=== PATIENT | female | born 1960 | race Two or more races ===

== ENCOUNTER 2023-10-05 21:04 | Emergency (ER) | payer MEDICAID, OTHER ==
[~2023-10-05] VITALS: Ht 165.1 cm; Wt 80.0 kg
[2023-10-05 22:03] LABS: Urine Bacteria NONE SEEN /hpf (None Seen); Urine Blood Negative /uL (Negative); Urine Clarity Clear (Clear); Urine Color Colorless (Yellow); Urine Protein, UAD Negative (Negative); Urine Specific Gravity 1.007 (1.001-1.035); Urine Urobilinogen Normal (Negative); Urine WBC 2 /hpf (0 - 5); Urine pH 7.5 (5.0-8.0)
[2023-10-06 03:15] VITALS: BP 120/84; PULSE 74; RESP 18; TEMP 97.8; O2SAT 98
[2023-10-06] MEDS ORDERED: PHEN-1045 PO (03:28)
== END 2023-10-06 04:04 | disposition home or self-care (01) ==
LOC: ER 21:04 → EDBD 21:04 → ER 10-06 04:04
DX: R30.0 Dysuria (principal); Z79.899 Other long term (current) drug therapy
CPT/HCPCS: 81001; 87086

== ENCOUNTER 2024-05-09 12:48 | Emergency (ER) | payer MEDICAID ==
[~2024-05-09] VITALS: Ht 165.1 cm; Wt 72.8 kg
[~2024-05-09 12:48] MED LIST: PHEN-1045 PO
[2024-05-09] MEDS: diphenhdrAMINE HCL 50 MG/1 ML VL ONE (13:26)
[2024-05-09] MEDS: HALOPERIDOL LACTATE 5 MG/ML INJ VIAL ONE (13:26)
[2024-05-09] MEDS: diphenhdrAMINE HCL 50 MG/1 ML VL IM ONE (13:27)
[2024-05-09] MEDS: HALOPERIDOL LACTATE 5 MG/ML INJ VIAL IM ONE ×2 (13:27→19:44)
[2024-05-09] MEDS: SODIUM CHLORIDE 0.9% 500 ML IVB ONE (16:15)
[2024-05-09] MEDS: SODIUM CHLORIDE 0.9% 1,000 ML IV ONE (16:15)
[2024-05-09 17:18] LABS: Basophils # (auto) 0.1 10 ^3/uL (0-0.2); Basophils % (auto) 0.5 % (0.0-2.0); Eosinophils # (auto) 0 10 ^3/uL (0-0.8); Eosinophils % (auto) 0.4 % (0.0-7.0); Hematocrit 37.1 % (36.0-46.0); Hemoglobin 12.7 g/dL (12.2-16.2); Lymphocytes # (auto) 2.3 10 ^3/uL (0.4-5.4); Lymphocytes % (auto) 20.4 % (10.0-50.0); Mean Corpuscular Hemoglobin 30.9 pg (28.0-32.0); Mean Corpuscular Hgb Conc. 34.3 g/dL (32.0-36.0); Mean Corpuscular Volume 90.1 fL (80.0-100.0); Monocytes # (auto) 0.8 10 ^3/uL (0-1.3); Monocytes % (auto) 7.3 % (0.0-12.0); Neutrophils # (auto) 7.9 10 ^3/uL (1.6-8.6); Neutrophils % (auto) 71.4 % (37.0-80.0); Platelet Count (auto) 323 10^3/uL (140-450); Red Blood Cells 4.12 10^6/uL (4.0-5.20); Red Cell Distribution Width 12.3 % (11.8-14.3); White Blood Cell 11.1 10^3/uL (4.4-10.8)
[2024-05-09 17:32] LABS: Alanine Aminotransferase 40 U/L (7-40); Albumin 4.3 g/dL (3.2-4.8); Alkaline Phosphatase 75 U/L (46-116); Anion Gap 7 (5-15); Aspartate Aminotransferase 50 U/L (13-40); BUN/Creatinine Ratio 23.8 (10.0-20.0); Blood Urea Nitrogen 15 mg/dL (9-23); Calcium 10.3 mg/dL (8.7-10.4); Carbon Dioxide 26 mmol/L (20-31); Chloride 110 mmol/L (98-107); Glucose 83 mg/dL (74-106); Magnesium 2.2 mg/dL (1.6-2.6); Potassium 3.7 mmol/L (3.5-5.1); Sodium 143 mmol/L (136-145)
[2024-05-09 17:33] LABS: Bilirubin, Total 0.9 mg/dL (0.2-1.0); Total Protein 6.8 g/dL (5.7-8.2)
[2024-05-09 19:14] LABS: Urine Bacteria FEW /hpf (None Seen); Urine Blood Negative /uL (Negative); Urine Clarity Clear (Clear); Urine Color Colorless (Yellow); Urine Protein, UAD Negative (Negative); Urine Specific Gravity 1.002 (1.001-1.035); Urine Urobilinogen Normal (Negative); Urine WBC 2 /hpf (0 - 5); Urine pH 6.5 (5.0-9.0)
[2024-05-09 19:46] LABS: Amphetamine Screen, Urine Neg (NEGATIVE); Barbiturate Scree,Urine Neg (NEGATIVE); Benzodiazephine Screen, Urine Neg (NEGATIVE); Cannabinoid Screen, Urine Pos (NEGATIVE); Cocaine Screen, Urine Neg (NEGATIVE); Opiate Scree,Urine Neg (NEGATIVE); Phencyclidine Screen, Urine Neg (NEGATIVE)
[2024-05-09 20:30] VITALS: PULSE 92; RESP 18; O2SAT 96
[2024-05-10] MEDS: IBUPROFEN 800 MG TAB PO ONE (04:17)
[2024-05-10] MEDS: OLANZapine 5 MG TAB PO ONE (04:17)
[2024-05-10 08:00] VITALS: BP 94/48; PULSE 53; RESP 12; TEMP 97.8; O2SAT 97
== END 2024-05-10 11:23 | disposition left against medical advice (07) ==
LOC: EDBD 12:48 → ER 12:48
DX: S00.03XA Contusion of scalp, initial encounter (principal); F29 Unspecified psychosis not due to a substance or known physiological condition; F41.9 Anxiety disorder, unspecified; Z79.899 Other long term (current) drug therapy; X58.XXXA Exposure to other specified factors, initial encounter; Y93.89 Activity, other specified; Y92.89 Other specified places as the place of occurrence of the external cause; Y99.8 Other external cause status
CPT/HCPCS: 36415; 70450; 71046; 80053; 80307; 81001; 83735; 84484; 85025; 93005; 96372; 99285; J1200; J1630

== ENCOUNTER 2024-05-12 14:43 | Inpatient (IN) | payer MEDICAID ==
[~2024-05-12] VITALS: Ht 154.9 cm; Wt 69.8 kg
[2024-05-12] MEDS: SODIUM CHLORIDE 0.9% 1,000 ML IV ONE ×3 (15:00→21:15)
--- NOTE | 2024-05-12 15:08 | ED.PDOC ---
History of Present Illness HPI Comments 63F presents to the ER w/ no prior Hx associated to the c/c of psych. EMS report a call from one of the pt's neighbors stating that the pt was laying on the ground. EMS on scene state tat the pt was laying on the ground with tar on her leg and was trying to paint with the tar. The pt was getting very aggressive en rout by kicking and spitting so EMS had to strap the pt down. Pt lives with son and that she escaped her house. Pt states "I fell off the roof this morning trying to fix it." PMHx of Arthritis, Gout, High Lipids and UTI. Denies chills, fever, N/V/D, SOB, CP or other associated symptoms, modifiers, or recent injuries at this time. Time Seen by MD: 14:45 Primary Care Provider: SAUL Breaux Notes: Nurses Notes, Casting Wheel Operator Notes, Medications, Allergies Allergies: Coded Allergies: Penicillins (Verified Allergy, 04/18/10) Home Meds Active Scripts Phenazopyridine HCl (Phenazopyridine Hydrochlo) 200 Mg Tab, 200 MG PO TID, #6 TAB Prov:DEMETRIUS SONG 06/24/22 Ciprofloxacin Hcl (Cipro) 500 Mg Tab, 1 TAB PO BID, #20 TAB Prov:DEMETRIUS SONG 06/24/22 Information Source: Patient, Emergency Med Personnel Mode of Arrival: EMS Severity: Moderate Timing: Minutes Duration: Since onset, Minutes Prehospital treatment: None Past Medical History PAST MEDICAL HISTORY: Arthritis, Gout, High Lipids, UTI'S Surgical History: Denies all surgeries 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 Hx Family History Family History: Reviewed,noncontributory to illness, Unknown Social History Smoker: Non-Smoker Alcohol: Denies ETOH Use Drugs: Denies Drug Use Lives In: Home Constitutional: denies: chills, diaphoresis, fatigue, fever, malaise, sweats, weakness, others EENTM: denies: blurred vision, double vision, ear bleeding, ear discharge, ear drainage, ear pain, ear ringing, eye pain, eye redness, hearing loss, mouth pain, mouth swelling, nasal discharge, nose bleeding, nose congestion, nose pain, photophobia, tearing, throat pain, throat swelling, voice changes, others Respiratory: denies: cough, hemoptysis, orthopnea, SOB at rest, shortness of breath, SOB with excertion, stridor, wheezing, others Cardiovascular: denies: chest pain, dizzy spells, diaphoresis, Dyspnea on exertion, edema, irregular heart beat, left arm pain, lightheadedness, palpitations, PND, syncope, others Gastrointestinal: denies: abdomen distended, abdominal pain, blood streaked bowels, constipated, diarrhea, dysphagia, difficulty swallowing, hematemesis, melena, nausea, poor appetite, poor fluid intake, rectal bleeding, rectal pain, vomiting, others Genitourinary: denies: abnormal vagina bleeding, burning, dyspareunia, dysuria, flank pain, frequency, hematuria, incontinence, pain, , vagina discharge, urgency, others Neurological: denies: dizziness, fainting, headache, left sided numbness, left sided weakness, numbness, paresthesia, pre-existing deficit, right sided numbness, right sided weakness, seizure, speech problems, tingling, tremors, weakness, others Musculoskeletal: denies: back pain, gout, joint pain, joint swelling, muscle pain, muscle stiffness, neck pain, others Integumetry: denies: bruises, change in color, change in hair/nails, dryness, laceration, lesions, lumps, rash, wounds, others Allergic/Immunocompromised: denies: Difficulty Healing, Frequent Infections, Hives, Itching, others Hematologic/Lymphatic: denies: anemia, blood clots, easy bleeding, easy bruising, swollen glands, others Endocrine: denies: excessive hunger, excessive sweating, excessive thirst, excessive urination, flushing, intolerance to cold, intolerance to heat, unexplained weight gain, unexplained weight loss, others Psychiatric: reports: others (psych); denies: anxiety, bipolar disorder, depression, hopeless, panic disorder, schizophrenia, sleepless, suicidal All Other Systems: Reviewed and Negative Physical Exam General Appearance: Moderate Distress, Normal HEENT: Normal ENT Inspection, Pharynx Normal, TMs Normal Neck: Full Range of Motion, Non-Tender, Normal, Normal Inspection Respiratory: Chest Non-Tender, Lungs Clear, No Accessory Muscle Use, No Respiratory Distress, Normal Breath Sounds Cardiovascular: No Edema, No JVD, No Murmur, No Gallop, Normal Peripheral Pulses, Regular Rate/Rhythm Breast Exam: Deferred Gastrointestinal: No Organomegaly, Non Tender, No Pulsatile Mass, Normal Bowel Sounds, Soft Genitalia: Deferred Pelvic: Deferred Rectal: Deferred Extremities: No calf tenderness, Normal capillary refill, Normal inspection, Normal range of motion, Non-tender, No pedal edema Musculoskeletal : Apperance: Normal Neurologic: Disoriented Cerebellar Function: NOT DONE Reflexes: Normal, NOT DONE Skin: Dry, Normal Color, Warm Peripheral Pulses: 3+ Radial (R), 3+ Radial (L) Lymphatic: No Adenopathy Was a procedure done? Was a procedure done?: No Differential Dx Considerations may include: Psychosis Electrolyte imbalance X-Ray, Labs, Meds, VS Vital Signs Date Time Temp Pulse Resp B/P (MAP) Pulse Ox O2 Delivery O2 Flow Rate FiO2 05/12/24 15:54 113 22 97 Room Air* 0 21 05/12/24 15:45 112 22 121/46 (71) 97 Patient disoriented. Does not take care of herself. Unable to get a history. Vitals stable. Agitated. Used Haldol. Ativan. Benadryl. No sign of any trauma. She does have tar on her legs. She was found on the street. Unknown her living status. 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 Time of 1ST Reevaluation: 15:15 Reevaluation 1ST: Unchanged Patient Education/Counseling: Diagnosis, Treatment, Prognosis Family Education/Counseling: No Family Present Departure 1 Departure Time of Disposition: 16:08 Impression: Primary Impression: Metabolic encephalopathy Disposition: ADMITTED INPATIENT Admit to: Med Surg Condition: Guarded Critical Care Note Critical Care Time?: Yes (45 min-critical care time only) Stability Stability form required: No Heart Score Heart Score: Heart Score Response (Comments) Value History N/A 0 EKG N/A 0 Age N/A 0 Risk Factors N/A 0 Troponin N/A 0 Total 0 I personally scribed for PHIL PIERSON MD ([email or web address]) on 05/12/24 at 15:08. Electronically submitted by Luis Degroot ([email or web address]). PHIL PIERSON MD May 12, 2024 15:08
[2024-05-12] MEDS: LORazepam 2MG/ML-1ML VIAL ONE (15:39)
[2024-05-12] MEDS: diphenhdrAMINE HCL 50 MG/1 ML VL ONE (15:39)
[2024-05-12] MEDS: HALOPERIDOL LACTATE 5 MG/ML INJ VIAL ONE (15:39)
[2024-05-12] MEDS: HALOPERIDOL LACTATE 5 MG/ML INJ VIAL IM ONE (15:40)
[2024-05-12] MEDS: LORazepam 2MG/ML-1ML VIAL IM ONE (15:40)
[2024-05-12] MEDS: diphenhdrAMINE HCL 50 MG/1 ML VL IM ONE (15:40)
[2024-05-12 15:54] VITALS: PULSE 113; RESP 22; O2SAT 97
[2024-05-12 16:28] LABS: Basophils # (auto) 0 10 ^3/uL (0-0.2); Basophils % (auto) 0.4 % (0.0-2.0); Eosinophils # (auto) 0 10 ^3/uL (0-0.8); Eosinophils % (auto) 0.1 % (0.0-7.0); Hematocrit 35.8 % (36.0-46.0); Hemoglobin 12.5 g/dL (12.2-16.2); Lymphocytes # (auto) 1.9 10 ^3/uL (0.4-5.4); Lymphocytes % (auto) 18.3 % (10.0-50.0); Mean Corpuscular Hemoglobin 31.6 pg (28.0-32.0); Mean Corpuscular Hgb Conc. 35.1 g/dL (32.0-36.0); Mean Corpuscular Volume 90.1 fL (80.0-100.0); Monocytes # (auto) 0.8 10 ^3/uL (0-1.3); Monocytes % (auto) 7.3 % (0.0-12.0); Neutrophils # (auto) 7.6 10 ^3/uL (1.6-8.6); Neutrophils % (auto) 73.9 % (37.0-80.0); Nucleated Red Blood Cells % 0.1 %; Platelet Count (auto) 327 10^3/uL (140-450); Red Blood Cells 3.97 10^6/uL (4.0-5.20); Red Cell Distribution Width 12.4 % (11.8-14.3); White Blood Cell 10.3 10^3/uL (4.4-10.8)
[2024-05-12 16:36] LABS: Calcium 10.4 mg/dL (8.7-10.4); Chloride 109 mmol/L (98-107); Potassium 2.7 mmol/L (3.5-5.1); Sodium 143 mmol/L (136-145)
[2024-05-12 16:37] LABS: Anion Gap 10 (5-15); Carbon Dioxide 24 mmol/L (20-31)
[2024-05-12 16:42] LABS: BUN/Creatinine Ratio 18.9 (10.0-20.0); Blood Urea Nitrogen 14 mg/dL (9-23); Glucose 111 mg/dL (74-106)
[2024-05-12] MEDS: POTASSIUM EFFERVESENT TAB 25 MEQ PO ONE (17:16)
[2024-05-12 19:30] VITALS: PULSE 84; RESP 15; O2SAT 95
--- NOTE | 2024-05-12 19:36 | DVH ---
EXAMINATION: AP portable chest radiograph CLINICAL HISTORY: sob COMPARISON: None FINDINGS: Multiple wires overlie the thorax. Shallow inspiration. Mild diffuse interstitial prominence. No lobar consolidation identified. No definite pleural effusio n or pneumothorax. The cardiomediastinal silhouette appears within normal limits given technique. IMPRESSION: Limited study. Mild diffuse interstitial prominence is relatively nonspecific but can be seen with edema, reactive a irway changes as well as atypical / viral infection. Please correlate clinically.
--- NOTE | 2024-05-12 19:39 | DVH ---
EXAM: CT HEAD WITHOUT CONTRAST INDICATION: altered TECHNIQUE: CT of the head without intravenous contrast. Radiation Dose Information: CT Dose: CTDI volume is 57.1 mGy. Dose-length product is 914.6 mGy*cm The dose indicators for CT are the volume Computed Tomography (CT) Dose Index (CTDIvol) and the Dose Length Product (DLP), and are measured in units of mGy and mGy-cm, respectively. These indicators are not patient dose, but values generated from the CT scanner acquisition factors. The report includes radiation exposure data for exposures received during this examination. COMPARISON: CT HEAD WITHOUT CONTRAST on DOS: 05/09/24 FINDINGS: There is no evidence of acute intracranial hemorrhage, extra-axial collection, mass effect, midline s hift, herniation or hydrocephalus. The ventricles, sulci and cisterns are age appropriate. The nettles-white differentiation is intact. Mild mucosal thickening in the right maxillary sinus. The bilateral mastoids are clear. The surrounding soft tissues and osseous structures are unremarkable. IMPRESSION: No acute intracranial abnormality.
--- NOTE | 2024-05-12 20:11 | DVHHP2 ---
Admitting Diagnosis: ALOC History of Present Illness 63F presents to the ER w/ no prior Hx associated to the c/c of psych. EMS report a call from one of the pt's neighbors stating that the pt was laying on the g round. EMS on scene state tat the pt was laying on the ground with tar on her leg and was trying to paint with the tar. The pt was getting very aggressive en rout by kicking and spitting so EMS had to strap the pt down. Pt lives with son and that she escaped her house. Pt states "I fell off the roof this morning trying to fix it." PMHx of Arthritis, Gout, High Lipids and UTI. Denies chills, fever, N/V/D, SOB, CP or other associated symptoms, modifiers, or recent injuries at this time. 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 Hx Family History: Reviewed,noncontributory to illness, Unknown Social History Smoker: Non-Smoker Alcohol: Denies ETOH Use Drugs: Denies Drug Use Lives In: Home Allergies: Coded Allergies: Penicillins (Verified Allergy, 04/18/10) Home Meds Active Scripts Phenazopyridine HCl (Phenazopyridine Hydrochlo) 200 Mg Tab, 200 MG PO TID, #6 TAB Prov:DEMETRIUS SONG 06/24/22 Ciprofloxacin Hcl (Cipro) 500 Mg Tab, 1 TAB PO BID, #20 TAB Prov:DEMETRIUS SONG 06/24/22 Vital Signs Vital Signs Date Time Temp Pulse Resp B/P (MAP) Pulse Ox O2 Delivery O2 Flow Rate FiO2 05/12/24 18:00 72 15 110/59 (76) 98 05/12/24 15:54 Room Air* 0 21 05/12/24 14:45 98.7 Physical Exam 64 years old woman, well nourished, well developed. No apparent distress HEENT-atraumatic normocephalic Heart-regular rate and rhythm Lungs clear to auscultate Abdomen soft nontender nondistended Musculoskeletal-no edema or cyanosis Neuro-asleep, arousable to verbal, unable to converse. Not following commands Results Labs Test 05/12/24 16:11 Range/Units White Blood Count 10.3 4.4-10.8 10^3/uL Red Blood Count 3.97 L 4.0-5.20 10^6/uL Hemoglobin 12.5 12.2-16.2 g/dL Hematocrit 35.8 L 36.0-46.0 % Mean Corpuscular Volume 90.1 80.0-100.0 fL Mean Corpuscular Hemoglobin 31.6 28.0-32.0 pg Mean Corpuscular Hemoglobin Concent 35.1 32.0-36.0 g/dL Red Cell Distribution Width 12.4 11.8-14.3 % Platelet Count 327 140-450 10^3/uL Mean Platelet Volume 7.2 6.9-10.8 fL Neutrophils (%) (Auto) 73.9 37.0-80.0 % Lymphocytes (%) (Auto) 18.3 10.0-50.0 % Monocytes (%) (Auto) 7.3 0.0-12.0 % Eosinophils (%) (Auto) 0.1 0.0-7.0 % Basophils (%) (Auto) 0.4 0.0-2.0 % Neutrophils # (Auto) 7.6 1.6-8.6 10 ^3/uL Lymphocytes # (Auto) 1.9 0.4-5.4 10 ^3/uL Monocytes # (Auto) 0.8 0-1.3 10 ^3/uL Eosinophils # (Auto) 0 0-0.8 10 ^3/uL Basophils # (Auto) 0 0-0.2 10 ^3/uL Nucleated Red Blood Cells 0.1 % Sodium Level 143 136-145 mmol/L Potassium Level 2.7 L 3.5-5.1 mmol/L Chloride Level 109 H 98-107 mmol/L Carbon Dioxide Level 24 20-31 mmol/L Anion Gap 10 5-15 Blood Urea Nitrogen 14 9-23 mg/dL Creatinine 0.74 0.550-1.02 mg/dL Glomerular Filtration Rate Calc 91 >90 mL/min BUN/Creatinine Ratio 18.9 10.0-20.0 Serum Glucose 111 H 74-106 mg/dL Calcium Level 10.4 8.7-10.4 mg/dL Primary Diagnosis Altered mental status without clear etiology rule out infection Plan Status post Haldol Benadryl and Ativan. Patient is asleep comfortably, arousable but unable to converse fairly Check B12, folate, TSH Neurology consult Neuro check per floor protocol Psych consult when patient is awake Social work consult haldol prn Full code Lovenox for DVT prophylaxis PPI for GI prophylaxis Regular diet Plan discussed with: Patient Problems List: (1) Psychosis (2) Altered mental status, unspecified Date of Service: May 12, 2024 Billing Provider: GLEN CHAVIS MD Common Visit Codes: [id number] INP/OBS CARE (HIGH) GLEN CHAVIS MD May 12, 2024 20:11
[2024-05-12] MEDS ORDERED: HALOPERIDOL LACTATE 5 MG/ML INJ VIAL IM PRN (20:15)
[2024-05-12] MEDS: SODIUM CHLOR 0.9% PF (SALINE LOCK) 10ML VIAL/SYR IV SCH (22:04)
[2024-05-13 04:05] LABS: Urine Bacteria None Seen /hpf (None Seen)
[2024-05-13] MEDS: HYDROmorphone HCL 2 MG/ML VL/or syr IV PRN (04:10)
[2024-05-13 04:23] LABS: Urine Blood TRACE /uL (Negative); Urine Clarity Turbid (Clear); Urine Color Yellow (Yellow); Urine Mucus FEW (None Seen); Urine Protein, UAD TRACE (Negative); Urine Urobilinogen Normal (Negative); Urine WBC 178 /hpf (0 - 5)
[2024-05-13] MEDS: HALOPERIDOL LACTATE 5 MG/ML INJ VIAL IM PRN (04:24)
[2024-05-13 04:29] LABS: Amphetamine Screen, Urine Neg (NEGATIVE); Barbiturate Scree,Urine Neg (NEGATIVE); Benzodiazephine Screen, Urine Neg (NEGATIVE); Cannabinoid Screen, Urine Pos (NEGATIVE); Cocaine Screen, Urine Neg (NEGATIVE); Opiate Scree,Urine Neg (NEGATIVE); Phencyclidine Screen, Urine Neg (NEGATIVE)
[2024-05-13] MEDS: ENOXAPARIN SOD 40 MG/0.4 ML SYRINGE SC SCH (10:00)
[2024-05-13 10:41] LABS: Basophils # (auto) 0 10 ^3/uL (0-0.2); Basophils % (auto) 0.5 % (0.0-2.0); Eosinophils # (auto) 0.1 10 ^3/uL (0-0.8); Eosinophils % (auto) 0.6 % (0.0-7.0); Hematocrit 36.4 % (36.0-46.0); Hemoglobin 12.6 g/dL (12.2-16.2); Lymphocytes % (auto) 22.5 % (10.0-50.0); Mean Corpuscular Hemoglobin 31.4 pg (28.0-32.0); Mean Corpuscular Hgb Conc. 34.5 g/dL (32.0-36.0); Monocytes # (auto) 0.6 10 ^3/uL (0-1.3); Monocytes % (auto) 6.7 % (0.0-12.0); Neutrophils # (auto) 6.1 10 ^3/uL (1.6-8.6); Neutrophils % (auto) 69.7 % (37.0-80.0); Nucleated Red Blood Cells % 0.2 %; Platelet Count (auto) 351 10^3/uL (140-450); Red Cell Distribution Width 12.8 % (11.8-14.3); White Blood Cell 8.8 10^3/uL (4.4-10.8)
[2024-05-13 10:55] LABS: Alanine Aminotransferase 53 U/L (7-40); Albumin 4.3 g/dL (3.2-4.8); Alkaline Phosphatase 72 U/L (46-116); Anion Gap 6 (5-15); Aspartate Aminotransferase 62 U/L (13-40); BUN/Creatinine Ratio 16.4 (10.0-20.0); Blood Urea Nitrogen 11 mg/dL (9-23); Calcium 10.1 mg/dL (8.7-10.4); Carbon Dioxide 27 mmol/L (20-31); Chloride 108 mmol/L (98-107); Glucose 126 mg/dL (74-106); Magnesium 2.2 mg/dL (1.6-2.6); Potassium 3.4 mmol/L (3.5-5.1); Sodium 141 mmol/L (136-145)
[2024-05-13 10:56] LABS: Total Protein 6.8 g/dL (5.7-8.2)
--- NOTE | 2024-05-13 13:12 | DVHINCON2 ---
Date of service: May 13, [address] Rob Ornelas Reason for Consultation Medication management and disposition. History of Present Illness Chief complaint: "Because I fell off the roof top". History of present illness: This is a 63 year female who was seen for [facility] ation via telepsychiatry. Patient is a poor historian and seems to be minimizing her recent behavior. She denies feeling depressed. She reported good sleep and appetite. She denied feeling hopeless or worthless. She denied any auditory visual hallucination. She presents paranoid. As per nursing staff patient has been indulging in aggressive behavior towards family and family is concerned about her safety and safety of other family members. Past psychiatric history: Patient denied any previous inpatient psychiatric hospitalization. She denied any suicide attempts in the past. Past Medical History As per history and physical. Past Surgical History As per history and physical. Family History She denied any family history of any psychiatric illness. Social History Patient is although she feels that she is single. Patient has four children. 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 Substance use: Patient denied but her U tox was positive for marijuana. Allergies: Coded Allergies: Penicillins (Verified Allergy, 04/18/10) Home Meds Active Scripts Phenazopyridine HCl (Phenazopyridine Hydrochlo) 200 Mg Tab, 200 MG PO TID, #6 TAB Prov:DEMETRIUS SONG 06/24/22 Ciprofloxacin Hcl (Cipro) 500 Mg Tab, 1 TAB PO BID, #20 TAB Prov:DEMETRIUS SONG 06/24/22 Current Medications Current Medications Medications (Trade) Dose Ordered Sig/Priyanka Route PRN Reason Start Time Stop Time Status Last Admin Sodium Chloride (Saline Lock Ns) 10 ml Q8HR IV 05/12/24 22:00 05/13/24 06:08 Acetaminophen (Tylenol Tablet) 650 mg Q6HP PRN PO PAIN SCALE 1-3 OR TEMP>100.4 05/12/24 20:15 Acetaminophen/ Hydrocodone Bitart ([place] 5/325MG Tab) 1 tab Q4HP PRN PO MODERATE PAIN (4-6 PAIN SCALE) 05/12/24 20:15 Hydromorphone HCl (Dilaudid Injection) 0.5 mg Q4HP PRN IV SEVERE PAIN (7-10 PAIN SCALE) 05/12/24 20:15 05/13/24 04:10 Ondansetron HCl (Zofran) 4 mg Q4HP PRN IV NAUSEA / VOMITING 05/12/24 20:15 Enoxaparin Sodium (Lovenox) 40 mg DAILY SC 05/13/24 10:00 Haloperidol Lactate (Haldol) 5 mg Q6H PRN IM severe hehavioral issue 05/12/24 20:15 05/12/24 20:20 DC Haloperidol Lactate (Haldol) 2.5 mg Q8H PRN IM behavioral issue 05/12/24 20:30 05/13/24 04:24 Review of Systems Review of systems is negative except HPI. Vital Signs Vital Signs Date Time Temp Pulse Resp B/P (MAP) Pulse Ox O2 Delivery O2 Flow Rate FiO2 05/13/24 08:00 87 18 150/90 (110) 95 05/13/24 07:25 Room Air* 0 21 05/12/24 20:00 98.1 98.1 Physical Exam Mental status examination: This is a 63 year female who appears older than his stated age. Her grooming is marginal. Her eye contact is poor. Her speech is soft and lacking spontaneity. She denied any suicidal or homicidal ideation. She denied any auditory or visual hallucination. Her thought processes is disorganized and paranoid. He is oriented to person and year. Her attention an d concentration impaired. Her memory and language impaired. Her judgment and insight are poor. Her impulse control poor. Her fund of knowledge is impaired. Labs/Diagnostic Data Labs Test 05/13/24 09:38 05/13/24 03:50 05/12/24 16:11 Range/Units White Blood Count 8.8 4.4-10.8 10^3/uL Red Blood Count 4.00 4.0-5.20 10^6/uL Hemoglobin 12.6 12.2-16.2 g/dL Hematocrit 36.4 36.0-46.0 % Mean Corpuscular Volume 91.0 80.0-100.0 fL Mean Corpuscular Hemoglobin 31.4 28.0-32.0 pg Mean Corpuscular Hemoglobin Concent 34.5 32.0-36.0 g/dL Red Cell Distribution Width 12.8 11.8-14.3 % Platelet Count 351 140-450 10^3/uL Mean Platelet Volume 7.2 6.9-10.8 fL Neutrophils (%) (Auto) 69.7 37.0-80.0 % Lymphocytes (%) (Auto) 22.5 10.0-50.0 % Monocytes (%) (Auto) 6.7 0.0-12.0 % Eosinophils (%) (Auto) 0.6 0.0-7.0 % Basophils (%) (Auto) 0.5 0.0-2.0 % Neutrophils # (Auto) 6.1 1.6-8.6 10 ^3/uL Lymphocytes # (Auto) 2.0 0.4-5.4 10 ^3/uL Monocytes # (Auto) 0.6 0-1.3 10 ^3/uL Eosinophils # (Auto) 0.1 0-0.8 10 ^3/uL Basophils # (Auto) 0 0-0.2 10 ^3/uL Nucleated Red Blood Cells 0.2 % Sodium Level 141 136-145 mmol/L Potassium Level 3.4 L 3.5-5.1 mmol/L Chloride Level 108 H 98-107 mmol/L Carbon Dioxide Level 27 20-31 mmol/L Anion Gap 6 5-15 Blood Urea Nitrogen 11 9-23 mg/dL Creatinine 0.67 0.550-1.02 mg/dL Glomerular Filtration Rate Calc 99 >90 mL/min BUN/Creatinine Ratio 16.4 10.0-20.0 Serum Glucose 126 H 74-106 mg/dL Calcium Level 10.1 8.7-10.4 mg/dL Magnesium Level 2.2 1.6-2.6 mg/dL Total Bilirubin 1.0 0.2-1.0 mg/dL Aspartate Amino Transferase (AST) 62 H 13-40 U/L Alanine Aminotransferase (ALT) 53 H 7-40 U/L Alkaline Phosphatase 72 46-116 U/L Total Protein 6.8 5.7-8.2 g/dL Albumin 4.3 3.2-4.8 g/dL Urine Color Yellow Yellow Urine Clarity Turbid H Clear Urine pH 7.0 5.0-9.0 Urine Specific [place] 1.020 1.001-1.035 Urine Protein Trace H Negative Urine Ketones 2+ H Negative Urine Blood Trace H Negative /uL Urine Nitrite Negative Negative Urine Bilirubin Negative Negative Urine Urobilinogen Normal Negative mg/dL Urine Leukocyte Esterase 3+ Negative /uL Urine RBC 16 0 - 4 /hpf Urine WBC 178 0 - 5 /hpf Urine Squamous Epithelial Cells Mod <5 /hpf Urine Bacteria None seen None Seen /hpf Urine Mucus Few None Seen Urine Glucose Normal Normal mg/dL Urine Opiates Screen Neg NEGATIVE Urine Fentanyl Screen Neg NEGATIVE Urine Barbiturates Screen Neg NEGATIVE Urine Phencyclidine Screen Neg NEGATIVE Urine Amphetamines Screen Neg NEGATIVE Urine Benzodiazepines Screen Neg NEGATIVE Urine Cocaine Screen Neg NEGATIVE Urine Cannabinoids Screen Pos NEGATIVE Thyroid Stimulating Hormone (TSH) 1.07 0.55-4.78 uIU/mL Assessment Patient with a diagnosis of psychotic disorder not otherwise specified and mood disorder not otherwise specified. As per nursing staff her family is concerned about safety as patient has not been getting help as she has been discharged prematurely. Plan/Recommendation I will recommend 5150 hold for danger to self/danger to other/GED as family does not willing to provide her with 3rd libertarian assistance. I will start her on Zyprexa 5 mg p.o. b.i.d.. Care was coordinated with the patient and her RN. Plan discussed with: Patient LEE DALLAS MD May 13, 2024 13:11
[2024-05-13] MEDS: OLANZapine 5 MG TAB PO ONE (13:49)
[2024-05-13] MEDS: DOXYCYCLINE 100MG/250ML 250 ML IV SCH (14:00)
--- NOTE | 2024-05-13 14:00 | DVHPN2 ---
Subjective Patient is agitated intermittently. Patient apparently had some lucid earlier today and able to tell the nurse where she is alert awake oriented x3. Changes from previous H/P or p: No Changes Objective Vitals Vital Signs Date Time Temp Pulse Resp B/P (MAP) Pulse Ox O2 Delivery O2 Flow Rate FiO2 05/13/24 08:00 87 18 150/90 (110) 95 05/13/24 07:25 Room Air* 0 21 05/12/24 20:00 98.1 98.1 Intake/Output Intake and Output 05/13/24 07:00 Intake Total 2012.5 ml Balance 2012.5 ml Intake IV Total 2012.5 ml Exam Patient is agitated. HEENT neck supple no JVD. Heart regular rate and rhythm S1 and S2. Lungs without rales wheezes. Abdomen soft positive bowel sounds. Extremities no edema. Medications Current Medications Medications Dose Ordered Sig/Priyanka Route Start Time Stop Time Status Last Admin Dose Admin Sodium Chloride 10 ml Q8HR IV 05/12/24 22:00 05/13/24 06:08 10 ML Acetaminophen 650 mg Q6HP PRN PO 05/12/24 20:15 Acetaminophen/ Hydrocodone Bitart 1 tab Q4HP PRN PO 05/12/24 20:15 Hydromorphone HCl 0.5 mg Q4HP PRN IV 05/12/24 20:15 05/13/24 04:10 0.5 MG Ondansetron HCl 4 mg Q4HP PRN IV 05/12/24 20:15 Enoxaparin Sodium 40 mg DAILY SC 05/13/24 10:00 Haloperidol Lactate 2.5 mg Q8H PRN IM 05/12/24 20:30 05/13/24 13:15 2.5 MG Olanzapine 5 mg BID PO 05/13/24 22:00 UNV Laboratory Results Laboratory Tests 05/13/24 09:38 Chemistry Test 05/12/24 16:11 05/13/24 09:38 Calcium Level 10.4 mg/dL (8.7-10.4) 10.1 mg/dL (8.7-10.4) Albumin 4.3 g/dL (3.2-4.8) Magnesium Level 2.2 mg/dL (1.6-2.6) Total Protein 6.8 g/dL (5.7-8.2) LFT Test 05/13/24 09:38 Alanine Aminotransferase (ALT) 53 U/L (7-40) H Alkaline Phosphatase 72 U/L (46-116) Aspartate Amino Transferase (AST) 62 U/L (13-40) H Total Bilirubin 1.0 mg/dL (0.2-1.0) HgA1c, TSH Test 05/12/24 16:11 Thyroid Stimulating Hormone (TSH) 1.07 uIU/mL (0.55-4.78) Urinalysis Test 05/13/24 03:50 Urine Color Yellow (Yellow) Urine Clarity Turbid (Clear) H Urine pH 7.0 (5.0-9.0) Urine Specific [place] 1.020 (1.001-1.035) Urine Protein Trace (Negative) H Urine Ketones 2+ (Negative) H Urine Blood Trace /uL (Negative) H Urine Nitrite Negative (Negative) Urine Bilirubin Negative (Negative) Urine Urobilinogen Normal mg/dL (Negative) Urine Leukocyte Esterase 3+ /uL (Negative) Urine RBC 16 /hpf (0 - 4) Urine WBC 178 /hpf (0 - 5) Urine Squamous Epithelial Cells Mod /hpf (<5) Urine Bacteria None seen /hpf (None Seen) Urine Mucus Few (None Seen) Urine Glucose Normal mg/dL (Normal) Labs and/or images reviewed: Labs reviewed by me Assessment/Plan Assessment/Plan Mild UTI Patient medically stable. Her agitation appears to be possible psych related. Does not appear to have any neurological problems. Head CT is normal. I will order MRI of the brain. Wait for Neurology consultation. Meantime we will have a tele psych consultation for her agitation recommend medications. Otherwise continue rest of supportive care and treatment as she is on for now. Further clinical management per clinical course and recommendations from the consultants. Discussed with the nurse regarding care plan. Plan discussed with: Other My Orders Orders - MURPHY HERRERA MD Procedure Category Date Status Time * Neurology Consult CONS 05/13/24 Transmitted 12:19 Olanzapine Tablet PHA 05/13/24 Logged (Zyprexa Tablet) 13:30 Problem List: (1) Psychosis (2) Altered mental status, unspecified Date of Service: May 13, 2024 Billing Provider: MURPHY HERRERA MD Common Visit Codes: [id number] INP/OBS CARE(MOD) MURPHY HERRERA MD May 13, 2024 14:00
[2024-05-13] MEDS: ONDANSETRON HCL 4 MG/2 ML VIAL IV PRN (19:45)
--- NOTE | 2024-05-13 21:35 | DVHINCON2 ---
Date of service: May 13, [address] Robert Reason for Consultation ALOC History of Present Illness Ms. Nunez is a 63 years old right-handed female with a history of dyslipidemia, gout, arthritis, the patient came to the hospital with a chief company of psychosis. At that time, she is alert, oriented x3, she provided the following history She reports when she was painting the roof to help her son, she fell off the roof. ER notes documented the patient was was found lying on the ground, with tar in her leg, and she was trying to paint with a tar In the private conversation, her nurse told me the patient was trying to jump off the roof, however she is easily agitated if somebody mentioned about this fact Tele psychiatry has seen her and recommended 5150 hold UDS, 05/13/2024: Cannabinoids Urinalysis, 05/13/2024: WBC: 178, urine leukocyte esterase: 3+ CBC, 05/13/2024: Unremarkable BNP, 05/13/2024: Unremarkable TBI/AST/ALT/AP, 05/13/2024: 1/53/72 Vitamin B12, 04/2024: Folic acid, 05/12/24: TSH, 05/12/2024: 1.07 CT head, 05/12/2024: No acute intracranial abnormality Past Medical History Dyslipidemia, gout, arthritis, Past Surgical History Bilateral carpal tunnel release Family History Cancer Social History She was tobacco smoke, but denies a history of alcohol or recreational substances abuse Allergies: Coded Allergies: Penicillins (Verified Allergy, 04/18/10) Home Meds Active Scripts Phenazopyridine HCl (Phenazopyridine Hydrochlo) 200 Mg Tab, 200 MG PO TID, #6 TAB Prov:DEMETRIUS SONG 06/24/22 Ciprofloxacin Hcl (Cipro) 500 Mg Tab, 1 TAB PO BID, #20 TAB Prov:DEMETRIUS SONG 06/24/22 Current Medications Current Medications Medications (Trade) Dose Ordered Sig/Priyanka Route PRN Reason Start Time Stop Time Status Last Admin Sodium Chloride (Saline Lock Ns) 10 ml Q8HR IV 05/12/24 22:00 05/13/24 13:39 Enoxaparin Sodium (Lovenox) 40 mg DAILY SC 05/13/24 10:00 Olanzapine (ZyPREXA Tablet) 5 mg BID PO 05/13/24 22:00 Doxycycline Hyclate 250 ml @ 125 mls/hr Q12H IV 05/13/24 14:00 Review of Systems As above, the other systems are negative Vital Signs Vital Signs Date Time Temp Pulse Resp B/P (MAP) Pulse Ox O2 Delivery O2 Flow Rate FiO2 05/13/24 20:15 100 16 135/60 05/13/24 19:30 Room Air* 0 21 05/13/24 19:30 98.0 97 98.0 Physical Exam GENERAL EXAM: General: the patient is well developed and nourished. No acute distress. HEENT: Normocephalic, neck is supple, no carotid bruits. No mass. RESPIRATORY: Normal respiratory effort with symmetrical lung expansion. Lungs clear to auscultation. CARDIOVASCULAR: Regular rate and rhythm with no murmurs. S1, S2. ABDOMEN: Soft, nontender, normal bowel sound MUSCULOSKELETAL EXAM: Tenderness to palpation in the neck, shoulders, and whole back NEUROLOGICAL: MENTAL STATUS: Awake and alert. Oriented to person, place, time and general circumstances. SPEECH, LANGUAGE, HIGHER CORTICAL FUNCTION: no aphasia or dysathria. CRANIAL NERVES: #2: Intact visual monge to confrontation. The optic discs were sharp. #3,4,6: Pupils are equal, round and reactive. EOMs full and conjugate. No nystagmus. #5: Facial sensation intact in all three divisions bilaterally. Mandibular strength intact. #7: Facial muscles symmetrical and strength intact. #8: Hearing grossly normal to voice. #9,10: Uvula and soft palate rise in the midline. Swallow and voice are normal. #11: Trapezius and sternomastoid strength intact bilaterally. #12: Tongue midline. No fasciculations or atrophy. SENSATION: Sensation to touch and pinprick is normal. MOTOR: Normal tone in the upper and lower extremity. Normal muscle bulk. No fasciculations. No abnormal movements or posturing. Muscle strength of the major groups in the upper extremities is 5/5. Muscle strength of the major groups in the lower extremities is 5/5. REFLEXES: Deep tendon reflexes normal and symmetrical. No pathological reflexes. CEREBELLAR/COORDINATION: Finger to nose and heel to araujo are normal bilaterally. GAIT/STATION: Within normal limits Labs/Diagnostic Data Labs Test 05/13/24 09:38 05/13/24 03:50 05/12/24 16:11 Range/Units White Blood Count 8.8 4.4-10.8 10^3/uL Red Blood Count 4.00 4.0-5.20 10^6/uL Hemoglobin 12.6 12.2-16.2 g/dL Hematocrit 36.4 36.0-46.0 % Mean Corpuscular Volume 91.0 80.0-100.0 fL Mean Corpuscular Hemoglobin 31.4 28.0-32.0 pg Mean Corpuscular Hemoglobin Concent 34.5 32.0-36.0 g/dL Red Cell Distribution Width 12.8 11.8-14.3 % Platelet Count 351 140-450 10^3/uL Mean Platelet Volume 7.2 6.9-10.8 fL Neutrophils (%) (Auto) 69.7 37.0-80.0 % Lymphocytes (%) (Auto) 22.5 10.0-50.0 % Monocytes (%) (Auto) 6.7 0.0-12.0 % Eosinophils (%) (Auto) 0.6 0.0-7.0 % Basophils (%) (Auto) 0.5 0.0-2.0 % Neutrophils # (Auto) 6.1 1.6-8.6 10 ^3/uL Lymphocytes # (Auto) 2.0 0.4-5.4 10 ^3/uL Monocytes # (Auto) 0.6 0-1.3 10 ^3/uL Eosinophils # (Auto) 0.1 0-0.8 10 ^3/uL Basophils # (Auto) 0 0-0.2 10 ^3/uL Nucleated Red Blood Cells 0.2 % Sodium Level 141 136-145 mmol/L Potassium Level 3.4 L 3.5-5.1 mmol/L Chloride Level 108 H 98-107 mmol/L Carbon Dioxide Level 27 20-31 mmol/L Anion Gap 6 5-15 Blood Urea Nitrogen 11 9-23 mg/dL Creatinine 0.67 0.550-1.02 mg/dL Glomerular Filtration Rate Calc 99 >90 mL/min BUN/Creatinine Ratio 16.4 10.0-20.0 Serum Glucose 126 H 74-106 mg/dL Calcium Level 10.1 8.7-10.4 mg/dL Magnesium Level 2.2 1.6-2.6 mg/dL Total Bilirubin 1.0 0.2-1.0 mg/dL Aspartate Amino Transferase (AST) 62 H 13-40 U/L Alanine Aminotransferase (ALT) 53 H 7-40 U/L Alkaline Phosphatase 72 46-116 U/L Total Protein 6.8 5.7-8.2 g/dL Albumin 4.3 3.2-4.8 g/dL Urine Color Yellow Yellow Urine Clarity Turbid H Clear Urine pH 7.0 5.0-9.0 Urine Specific [place] 1.020 1.001-1.035 Urine Protein Trace H Negative Urine Ketones 2+ H Negative Urine Blood Trace H Negative /uL Urine Nitrite Negative Negative Urine Bilirubin Negative Negative Urine Urobilinogen Normal Negative mg/dL Urine Leukocyte Esterase 3+ Negative /uL Urine RBC 16 0 - 4 /hpf Urine WBC 178 0 - 5 /hpf Urine Squamous Epithelial Cells Mod <5 /hpf Urine Bacteria None seen None Seen /hpf Urine Mucus Few None Seen Urine Glucose Normal Normal mg/dL Urine Opiates Screen Neg NEGATIVE Urine Fentanyl Screen Neg NEGATIVE Urine Barbiturates Screen Neg NEGATIVE Urine Phencyclidine Screen Neg NEGATIVE Urine Amphetamines Screen Neg NEGATIVE Urine Benzodiazepines Screen Neg NEGATIVE Urine Cocaine Screen Neg NEGATIVE Urine Cannabinoids Screen Pos NEGATIVE Thyroid Stimulating Hormone (TSH) 1.07 0.55-4.78 uIU/mL Assessment ? Psychosis with suicidal attempt Fall injury Plan/Recommendation Monitoring Supportive treatment CT head Zyprexa 5 mg b.i.d. 5150 hold Plan discussed with: Patient, Other DEANN DICKENS MD May 13, 2024 21:35
[2024-05-13] MEDS: OLANZapine 5 MG TAB PO SCH (22:15)
[2024-05-14] MEDS: HALOPERIDOL LACTATE 5 MG/ML INJ VIAL IM ONE (03:04)
--- NOTE | 2024-05-14 06:41 | DVH ---
EXAM: CT CERVICAL WITHOUT CONTRAST INDICATION: Tenderness in neck EXAM DATE: 05/14/2024 06:02 AM COMPARISON: None TECHNIQUE: Multiple axial CT images of the cervical spine were obtained using bone algorithm. refor matting was done. Bone and soft tissue windows were reviewed.Sagittal and coronalSagittal Radiation Dose Information: CT Dose: CTDI volume is 22.19 mGy. Dose-length product is 539.07 mGy*cm FINDINGS: The cervical alignment is intact. Reversal of the cervical lordosis. No acute cervical spine fracture is identified. The vertebral body heights are intact. No suspicious osseous lesions are identified. Multilevel intervertebral disc space narrowing. There is posterior disc osteophyte complex at C5-C6. There is mild canal stenosis at C5-C6. Multilevel neural foraminal stenosis especially at C5-C6 on th e left. There is no prevertebral soft tissue swelling. IMPRESSION: 1. No evidence of acute cervical spine fracture or traumatic malalignment. 2. Multilevel cervical spondylosis. All CT scans at this medical facility are performed using dose modulation techniques as appropriate t o a performed exam including the following:Automated exposure control was utilized; adjustment of the MA and/or KV according to patient size; and use of iterative reconstruction technique.
[2024-05-14 07:30] VITALS: PULSE 73; RESP 14; O2SAT 98
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
[2024-05-14 09:38] LABS: Basophils # (auto) 0 10 ^3/uL (0-0.2); Basophils % (auto) 0.7 % (0.0-2.0); Eosinophils # (auto) 0.1 10 ^3/uL (0-0.8); Eosinophils % (auto) 1.3 % (0.0-7.0); Hematocrit 35.2 % (36.0-46.0); Hemoglobin 12.1 g/dL (12.2-16.2); Lymphocytes # (auto) 2.1 10 ^3/uL (0.4-5.4); Lymphocytes % (auto) 28.9 % (10.0-50.0); Mean Corpuscular Hemoglobin 31.2 pg (28.0-32.0); Mean Corpuscular Hgb Conc. 34.5 g/dL (32.0-36.0); Mean Corpuscular Volume 90.5 fL (80.0-100.0); Monocytes # (auto) 0.7 10 ^3/uL (0-1.3); Monocytes % (auto) 9.7 % (0.0-12.0); Neutrophils # (auto) 4.3 10 ^3/uL (1.6-8.6); Neutrophils % (auto) 59.4 % (37.0-80.0); Platelet Count (auto) 333 10^3/uL (140-450); Red Blood Cells 3.89 10^6/uL (4.0-5.20); Red Cell Distribution Width 12.7 % (11.8-14.3); White Blood Cell 7.2 10^3/uL (4.4-10.8)
[2024-05-14 09:52] LABS: Alanine Aminotransferase 56 U/L (7-40); Albumin 3.9 g/dL (3.2-4.8); Alkaline Phosphatase 63 U/L (46-116); Anion Gap 5 (5-15); Aspartate Aminotransferase 68 U/L (13-40); BUN/Creatinine Ratio 12.9 (10.0-20.0); Blood Urea Nitrogen 8 mg/dL (9-23); Calcium 10.1 mg/dL (8.7-10.4); Carbon Dioxide 29 mmol/L (20-31); Chloride 110 mmol/L (98-107); Glucose 102 mg/dL (74-106); Magnesium 2.2 mg/dL (1.6-2.6); Potassium 3.7 mmol/L (3.5-5.1); Sodium 144 mmol/L (136-145)
[2024-05-14 09:53] LABS: Bilirubin, Total 0.6 mg/dL (0.2-1.0); Total Protein 6.2 g/dL (5.7-8.2)
[2024-05-14 11:16] LABS: Free T4 (Free Thyroxine) 1.41 ng/dL (0.89-1.76)
[2024-05-14 11:33] LABS: Folate (Folic Acid) 30.04 ng/mL (>5.38)
--- NOTE | 2024-05-14 19:00 | DVHPN2 ---
Subjective Patient resting comfortably. Evaluated by neurologist. CT cervical spine no acute pathology. Started on antipsychotic medications and medically stable Changes from previous H/P or p: No Changes Objective Vitals Vital Signs Date Time Temp Pulse Resp B/P (MAP) Pulse Ox O2 Delivery O2 Flow Rate FiO2 05/14/24 16:00 72 14 114/63 (80) 100 05/14/24 07:30 Room Air* 0 21 05/13/24 19:30 98.0 98.0 Exam Patient is resting comfortable. HEENT neck supple no JVD. Heart regular rate and rhythm S1 and S2. Lungs without rales wheezes. Abdomen soft positive bowel sounds. Extremities no edema. Medications Current Medications Medications Dose Ordered Sig/Priynaka Route Start Time Stop Time Status Last Admin Dose Admin Sodium Chloride 10 ml Q8HR IV 05/12/24 22:00 05/14/24 14:09 10 ML Acetaminophen 650 mg Q6HP PRN PO 05/12/24 20:15 Acetaminophen/ Hydrocodone Bitart 1 tab Q4HP PRN PO 05/12/24 20:15 Hydromorphone HCl 0.5 mg Q4HP PRN IV 05/12/24 20:15 05/13/24 19:45 0.5 MG Ondansetron HCl 4 mg Q4HP PRN IV 05/12/24 20:15 05/13/24 19:45 4 MG Enoxaparin Sodium 40 mg DAILY SC 05/13/24 10:00 Haloperidol Lactate 2.5 mg Q8H PRN IM 05/12/24 20:30 05/13/24 22:24 2.5 MG Olanzapine 5 mg BID PO 05/13/24 22:00 05/14/24 10:38 5 MG Doxycycline Hyclate 250 ml @ 125 mls/hr Q12H IV 05/13/24 14:00 05/14/24 14:14 125 MLS/HR Laboratory Results Laboratory Tests 05/14/24 09:22 Chemistry Test 05/14/24 09:22 Albumin 3.9 g/dL (3.2-4.8) Calcium Level 10.1 mg/dL (8.7-10.4) Magnesium Level 2.2 mg/dL (1.6-2.6) Total Protein 6.2 g/dL (5.7-8.2) LFT Test 05/14/24 09:22 Alanine Aminotransferase (ALT) 56 U/L (7-40) H Alkaline Phosphatase 63 U/L (46-116) Aspartate Amino Transferase (AST) 68 U/L (13-40) H Total Bilirubin 0.6 mg/dL (0.2-1.0) Urinalysis Test 05/13/24 03:50 Urine Color Yellow (Yellow) Urine Clarity Turbid (Clear) H Urine pH 7.0 (5.0-9.0) Urine Specific [place] 1.020 (1.001-1.035) Urine Protein Trace (Negative) H Urine Ketones 2+ (Negative) H Urine Blood Trace /uL (Negative) H Urine Nitrite Negative (Negative) Urine Bilirubin Negative (Negative) Urine Urobilinogen Normal mg/dL (Negative) Urine Leukocyte Esterase 3+ /uL (Negative) Urine RBC 16 /hpf (0 - 4) Urine WBC 178 /hpf (0 - 5) Urine Squamous Epithelial Cells Mod /hpf (<5) Urine Bacteria None seen /hpf (None Seen) Urine Mucus Few (None Seen) Urine Glucose Normal mg/dL (Normal) Labs and/or images reviewed: Labs reviewed by me Assessment/Plan Assessment/Plan Patient medically stable. She can be transferred to a psychiatric facility for further evaluation and management of her psychosis. Continue antipsychotic medications as she is on per tele psychology recommendations. Plan discussed with: Other My Orders Orders - MURPHY HERRERA MD Procedure Category Date Status Time Discharge DISCHARGE 05/14/24 Transmitted 16:15 Problem List: (1) Altered mental status, unspecified (2) Psychosis Date of Service: May 14, 2024 Billing Provider: MURPHY HERRERA MD Common Visit Codes: [id number] INP/OBS CARE(MOD) MURPHY HERRERA MD May 14, 2024 19:00
[2024-05-14 19:50] VITALS: O2SAT 98
[2024-05-14] MEDS: HYDROcodone-ACET 5/325MG TAB PO PRN (22:02)
[2024-05-14 23:55] VITALS: BP 113/58; PULSE 57; RESP 18; TEMP 97.6; O2SAT 90
[2024-05-15] VITALS (7 sets, daily range): BP systolic 110–147; BP diastolic 57–85; PULSE 59–105; RESP 14–18; TEMP 97.8–99; O2SAT 91–99
[2024-05-15 10:26] LABS: Basophils # (auto) 0 10 ^3/uL (0-0.2); Basophils % (auto) 0.6 % (0.0-2.0); Eosinophils # (auto) 0.2 10 ^3/uL (0-0.8); Eosinophils % (auto) 2.4 % (0.0-7.0); Hematocrit 34.8 % (36.0-46.0); Hemoglobin 12.1 g/dL (12.2-16.2); Lymphocytes # (auto) 2.4 10 ^3/uL (0.4-5.4); Mean Corpuscular Hemoglobin 31.7 pg (28.0-32.0); Mean Corpuscular Hgb Conc. 34.7 g/dL (32.0-36.0); Mean Corpuscular Volume 91.3 fL (80.0-100.0); Monocytes # (auto) 0.7 10 ^3/uL (0-1.3); Monocytes % (auto) 10.2 % (0.0-12.0); Neutrophils # (auto) 3.9 10 ^3/uL (1.6-8.6); Neutrophils % (auto) 53.8 % (37.0-80.0); Platelet Count (auto) 357 10^3/uL (140-450); Red Blood Cells 3.81 10^6/uL (4.0-5.20); Red Cell Distribution Width 12.8 % (11.8-14.3); White Blood Cell 7.2 10^3/uL (4.4-10.8)
[2024-05-15 10:42] LABS: Alanine Aminotransferase 49 U/L (7-40); Alkaline Phosphatase 63 U/L (46-116); Anion Gap 6 (5-15); Aspartate Aminotransferase 50 U/L (13-40); Bilirubin, Total 0.6 mg/dL (0.2-1.0); Blood Urea Nitrogen 7 mg/dL (9-23); Calcium 10.3 mg/dL (8.7-10.4); Carbon Dioxide 29 mmol/L (20-31); Chloride 108 mmol/L (98-107); Glucose 91 mg/dL (74-106); Magnesium 2.1 mg/dL (1.6-2.6); Sodium 143 mmol/L (136-145); Total Protein 6.4 g/dL (5.7-8.2)
--- NOTE | 2024-05-15 11:01 | DVHPN2 ---
Progress Note - Dictate Date Seen: May 15, 2024 Medical Necessity Reason Pt with a Central, PICC or Fol: No Subjective Ms. Nunez is a 63 years old right-handed female with a history of dyslipidemia, gout, arthritis, the patient came to the hospital with a chief company of psychosis. I have seen and examined the patient, I have talked to her nurse, she is alert, oriented x3, she was climbing towards the bed head because she was wet No new complaints UDS, 05/13/2024: Cannabinoids Urinalysis, 05/13/2024: WBC: 178, urine leukocyte esterase: 3+ CBC, 05/13/2024: Unremarkable BMP, 05/13/2024: Unremarkable TBI/AST/ALT/AP, 05/13/2024: 1/53/72 Vitamin B12, 04/2024: Folic acid, 05/12/24: TSH, 05/12/2024: 1.07 CT head, 05/12/2024: No acute intracranial abnormality CT C-spine, 05/14/2024: 1. No evidence of acute cervical spine fracture or traumatic malalignment. 2. Multilevel cervical spondylosis. vital signs Vital Sign Date Time Temp Pulse Resp B/P (MAP) Pulse Ox O2 Delivery O2 Flow Rate FiO2 05/15/24 09:04 Room Air* 0 21 05/15/24 09:00 97.8 72 18 137/85 (102) 94 97.8 Total Intake and Output 05/14/24 05/14/24 05/15/24 15:00 23:00 07:00 Intake Total 250 ml 490 ml Output Total 300 ml Balance 250 ml 190 ml medications Current Medications Medications Dose Ordered Sig/Priyanka Route Start Time Stop Time Status Last Admin Dose Admin Sodium Chloride 10 ml Q8HR IV 05/12/24 22:00 05/15/24 05:57 10 ML Acetaminophen 650 mg Q6HP PRN PO 05/12/24 20:15 Acetaminophen/ Hydrocodone Bitart 1 tab Q4HP PRN PO 05/12/24 20:15 05/15/24 09:39 1 TAB Hydromorphone HCl 0.5 mg Q4HP PRN IV 05/12/24 20:15 05/14/24 23:08 0.5 MG Ondansetron HCl 4 mg Q4HP PRN IV 05/12/24 20:15 05/15/24 09:39 4 MG Enoxaparin Sodium 40 mg DAILY SC 05/13/24 10:00 05/15/24 09:00 40 MG Haloperidol Lactate 2.5 mg Q8H PRN IM 05/12/24 20:30 05/13/24 22:24 2.5 MG Olanzapine 5 mg BID PO 05/13/24 22:00 05/15/24 08:59 5 MG Doxycycline Hyclate 250 ml @ 125 mls/hr Q12H IV 05/13/24 14:00 05/15/24 04:03 125 MLS/HR objective General: the patient is well developed and nourished. No acute distress. MUSCULOSKELETAL EXAM: Tenderness to palpation in the neck, shoulders, and whole back MENTAL STATUS: Awake and alert. Oriented to person, place, time and general circumstances. SPEECH, LANGUAGE, HIGHER CORTICAL FUNCTION: no aphasia or dysathria. CRANIAL NERVES: Pupils are equal, round and reactive. EOMs full and conjugate. No nystagmus. Facial sensation intact in all three divisions bilaterally. Mandibular strength intact. Facial muscles symmetrical and strength intact. SENSATION: Sensation to touch and pinprick is normal. MOTOR: Normal tone in the upper and lower extremity. Normal muscle bulk. No fasciculations. No abnormal movements or posturing. Muscle strength of the major groups in the extremities is 5/5. REFLEXES: Deep tendon reflexes normal and symmetrical. No pathological reflexes. CEREBELLAR/COORDINATION: Finger to nose and heel to araujo are normal bilaterally. GAIT/STATION: Within normal limits laboratory and microbiology Laboratory Tests 05/15/24 09:55 Test 05/15/24 09:55 Range/Units Serum Glucose 91 74-106 mg/dL Problem List ? Psychosis with suicidal attempt Fall injury Assessment/Plan Monitoring Supportive treatment Telemetry Zyprexa 5 mg b.i.d. 5150 hold This medical document was created using an electronic medical record system with [employer] dictation system. Although this document has been carefully reviewed, there may still be some phonetic and typographical errors. These areas are purely typographical due to imperfections of the software programs, and do not reflect any compromise in the patient's medical care. Prognosis poor Plan discussed with: Other DEANN DICKENS MD May 15, 2024 11:00
--- NOTE | 2024-05-15 18:59 | DVHPN2 ---
Subjective Patient resting comfortably. Patient is waiting for psychiatric facility placement. However no facility beds available for acceptance. Changes from previous H/P or p: No Changes Objective Vitals Vital Signs Date Time Temp Pulse Resp B/P (MAP) Pulse Ox O2 Delivery O2 Flow Rate FiO2 05/15/24 16:52 99.0 87 18 147/81 (103) 97 99.0 05/15/24 09:04 Room Air* 0 21 Intake/Output Intake and Output 05/15/24 07:00 Intake Total 740 ml Output Total 300 ml Balance 440 ml Intake Oral 240 ml IV Total 500 ml Output Urine Total 300 ml Exam Patient is resting comfortable. HEENT neck supple no JVD. Heart regular rate and rhythm S1 and S2. Lungs without rales wheezes. Abdomen soft positive bowel sounds. Extremities no edema. Medications Current Medications Medications Dose Ordered Sig/Priyanka Route Start Time Stop Time Status Last Admin Dose Admin Sodium Chloride 10 ml Q8HR IV 05/12/24 22:00 05/15/24 13:42 10 ML Acetaminophen 650 mg Q6HP PRN PO 05/12/24 20:15 Acetaminophen/ Hydrocodone Bitart 1 tab Q4HP PRN PO 05/12/24 20:15 05/15/24 15:08 1 TAB Hydromorphone HCl 0.5 mg Q4HP PRN IV 05/12/24 20:15 05/14/24 23:08 0.5 MG Ondansetron HCl 4 mg Q4HP PRN IV 05/12/24 20:15 05/15/24 15:08 4 MG Enoxaparin Sodium 40 mg DAILY SC 05/13/24 10:00 05/15/24 09:00 40 MG Haloperidol Lactate 2.5 mg Q8H PRN IM 05/12/24 20:30 05/13/24 22:24 2.5 MG Olanzapine 5 mg BID PO 05/13/24 22:00 05/15/24 08:59 5 MG Doxycycline Hyclate 250 ml @ 125 mls/hr Q12H IV 05/13/24 14:00 05/15/24 13:42 125 MLS/HR Laboratory Results Laboratory Tests 05/15/24 09:55 Chemistry Test 05/15/24 09:55 Albumin 4.0 g/dL (3.2-4.8) Calcium Level 10.3 mg/dL (8.7-10.4) Magnesium Level 2.1 mg/dL (1.6-2.6) Total Protein 6.4 g/dL (5.7-8.2) LFT Test 05/15/24 09:55 Alanine Aminotransferase (ALT) 49 U/L (7-40) H Alkaline Phosphatase 63 U/L (46-116) Aspartate Amino Transferase (AST) 50 U/L (13-40) H Total Bilirubin 0.6 mg/dL (0.2-1.0) Urinalysis Test 05/13/24 03:50 Urine Color Yellow (Yellow) Urine Clarity Turbid (Clear) H Urine pH 7.0 (5.0-9.0) Urine Specific [place] 1.020 (1.001-1.035) Urine Protein Trace (Negative) H Urine Ketones 2+ (Negative) H Urine Blood Trace /uL (Negative) H Urine Nitrite Negative (Negative) Urine Bilirubin Negative (Negative) Urine Urobilinogen Normal mg/dL (Negative) Urine Leukocyte Esterase 3+ /uL (Negative) Urine RBC 16 /hpf (0 - 4) Urine WBC 178 /hpf (0 - 5) Urine Squamous Epithelial Cells Mod /hpf (<5) Urine Bacteria None seen /hpf (None Seen) Urine Mucus Few (None Seen) Urine Glucose Normal mg/dL (Normal) Labs and/or images reviewed: Labs reviewed by me Assessment/Plan Assessment/Plan Patient medically stable. She can be transferred to a psychiatric facility for further evaluation and management of her psychosis. Given no facility beds available for transfer I will have a repeat tele psych evaluation to see if patient can be taken off 5150 hold and transferred voluntarily if bed available versus discharge home with family. Meantime continue current medications as she is on Plan discussed with: Other My Orders Orders - MURPHY HERRERA MD Procedure Category Date Status Time * Correctional Therapy Director CONS 05/15/24 Transmitted Consult Date of Service: May 15, 2024 Billing Provider: MURPHY HERRERA MD Common Visit Codes: [id number] INP/OBS CARE(MOD) MURPHY HERRERA MD May 15, 2024 18:59
[2024-05-16] VITALS (8 sets, daily range): BP systolic 130–154; BP diastolic 66–88; PULSE 67–100; RESP 13–21; TEMP 98.1–98.3; O2SAT 93–96
[2024-05-16 06:44] LABS: Alanine Aminotransferase 53 U/L (7-40); Albumin 4.2 g/dL (3.2-4.8); Alkaline Phosphatase 70 U/L (46-116); Anion Gap 7 (5-15); Aspartate Aminotransferase 45 U/L (13-40); BUN/Creatinine Ratio 15.4 (10.0-20.0); Blood Urea Nitrogen 12 mg/dL (9-23); Carbon Dioxide 29 mmol/L (20-31); Chloride 105 mmol/L (98-107); Glucose 128 mg/dL (74-106); Potassium 3.7 mmol/L (3.5-5.1); Sodium 141 mmol/L (136-145)
[2024-05-16 06:45] LABS: Bilirubin, Total 0.5 mg/dL (0.2-1.0); Total Protein 6.8 g/dL (5.7-8.2)
[2024-05-16 06:52] LABS: Basophils # (auto) 0.1 10 ^3/uL (0-0.2); Basophils % (auto) 0.9 % (0.0-2.0); Eosinophils # (auto) 0.2 10 ^3/uL (0-0.8); Eosinophils % (auto) 2.1 % (0.0-7.0); Hematocrit 36.5 % (36.0-46.0); Hemoglobin 12.5 g/dL (12.2-16.2); Lymphocytes # (auto) 3.1 10 ^3/uL (0.4-5.4); Lymphocytes % (auto) 34.9 % (10.0-50.0); Mean Corpuscular Hemoglobin 31.4 pg (28.0-32.0); Mean Corpuscular Hgb Conc. 34.3 g/dL (32.0-36.0); Mean Corpuscular Volume 91.5 fL (80.0-100.0); Monocytes # (auto) 0.8 10 ^3/uL (0-1.3); Monocytes % (auto) 8.9 % (0.0-12.0); Neutrophils # (auto) 4.7 10 ^3/uL (1.6-8.6); Neutrophils % (auto) 53.2 % (37.0-80.0); Platelet Count (auto) 370 10^3/uL (140-450); Red Blood Cells 3.99 10^6/uL (4.0-5.20); Red Cell Distribution Width 13.1 % (11.8-14.3); White Blood Cell 8.8 10^3/uL (4.4-10.8)
--- NOTE | 2024-05-16 11:14 | DVHPN2 ---
Progress Note - Dictate Date Seen: May 16, 2024 Medical Necessity Reason Pt with a Central, PICC or Fol: No Subjective Ms. Nunez is a 63 years old right-handed female with a history of dyslipidemia, gout, arthritis, the patient came to the hospital with a chief company of psychosis. I have seen and examined the patient, I have talked to her nurse, she is alert, oriented x3. No new complaints UDS, 05/13/2024: Cannabinoids Urinalysis, 05/13/2024: WBC: 178, urine leukocyte esterase: 3+ CBC, 05/13/2024: Unremarkable BMP, 05/13/2024: Unremarkable TBI/AST/ALT/AP, 05/13/2024: 1/62/53/72 Vitamin B12, 04/2024: Folic acid, 05/12/24: TSH, 05/12/2024: 1.07 CT head, 05/12/2024: No acute intracranial abnormality CT C-spine, 05/14/2024: 1. No evidence of acute cervical spine fracture or traumatic malalignment. 2. Multilevel cervical spondylosis. vital signs Vital Sign Date Time Temp Pulse Resp B/P (MAP) Pulse Ox O2 Delivery O2 Flow Rate FiO2 05/16/24 09:00 98.1 67 20 130/88 (102) 96 98.1 05/16/24 00:06 Room Air* 0 21 Total Intake and Output 05/15/24 05/15/24 05/16/24 15:00 23:00 07:00 Intake Total 1520 ml 575 ml Balance 1520 ml 575 ml medications Current Medications Medications Dose Ordered Sig/Priyanka Route Start Time Stop Time Status Last Admin Dose Admin Sodium Chloride 10 ml Q8HR IV 05/12/24 22:00 05/16/24 06:05 10 ML Acetaminophen 650 mg Q6HP PRN PO 05/12/24 20:15 Acetaminophen/ Hydrocodone Bitart 1 tab Q4HP PRN PO 05/12/24 20:15 05/16/24 09:18 1 TAB Hydromorphone HCl 0.5 mg Q4HP PRN IV 05/12/24 20:15 05/15/24 22:18 0.5 MG Ondansetron HCl 4 mg Q4HP PRN IV 05/12/24 20:15 10/22/24 15:08 4 MG Enoxaparin Sodium 40 mg DAILY SC 05/13/24 10:00 05/16/24 09:19 40 MG Haloperidol Lactate 2.5 mg Q8H PRN IM 05/12/24 20:30 05/13/24 22:24 2.5 MG Olanzapine 5 mg BID PO 05/13/24 22:00 05/16/24 09:18 5 MG Doxycycline Hyclate 250 ml @ 125 mls/hr Q12H IV 05/13/24 14:00 05/15/24 13:42 125 MLS/HR objective General: the patient is well developed and nourished. No acute distress. MUSCULOSKELETAL EXAM: Tenderness to palpation in the neck, shoulders, and whole back MENTAL STATUS: Awake and alert. Oriented to person, place, time and general circumstances. SPEECH, LANGUAGE, HIGHER CORTICAL FUNCTION: no aphasia or dysathria. CRANIAL NERVES: Pupils are equal, round and reactive. EOMs full and conjugate. No nystagmus. Facial sensation intact in all three divisions bilaterally. Mandibular strength intact. Facial muscles symmetrical and strength intact. SENSATION: Sensation to touch and pinprick is normal. MOTOR: Normal tone in the upper and lower extremity. Normal muscle bulk. No fasciculations. No abnormal movements or posturing. Muscle strength of the major groups in the extremities is 5/5. REFLEXES: Deep tendon reflexes normal and symmetrical. No pathological reflexes. CEREBELLAR/COORDINATION: Finger to nose and heel to araujo are normal bilaterally. GAIT/STATION: Within normal limits laboratory and microbiology Laboratory Tests 05/16/24 05:45 Test 05/16/24 05:45 Range/Units Serum Glucose 128 H 74-106 mg/dL Problem List ? Psychosis with suicidal attempt Fall injury Assessment/Plan Monitoring Supportive treatment Telemetry Zyprexa 5 mg b.i.d. 5150 hold This medical document was created using an electronic medical record system with datango dictation system. Although this document has been carefully reviewed, there may still be some phonetic and typographical errors. These areas are purely typographical due to imperfections of the software programs, and do not reflect any compromise in the patient's medical care. Prognosis poor Plan discussed with: Other DEANN DICKENS MD May 16, 2024 11:13
--- NOTE | 2024-05-16 14:32 | DVHPN2 ---
Subjective Patient requesting to go home with her daughter. Does not want to go back to son's place. Patient says she has a serum soups test she was supposed to take on the 13/03. She wants to go home prior to then to prepare. Patient had a repeat tele psych evaluation yesterday and 5150 hold his discontinued. Social Service are still looking into bed availability. Changes from previous H/P or p: No Changes Objective Vitals Vital Signs Date Time Temp Pulse Resp B/P (MAP) Pulse Ox O2 Delivery O2 Flow Rate FiO2 05/16/24 13:00 98.1 79 21 133/83 (100) 93 98.1 05/16/24 00:06 Room Air* 0 21 Intake/Output Intake and Output 05/16/24 07:00 Intake Total 2095 ml Balance 2095 ml Intake Oral 2095 ml # Voids 12 Exam Patient is resting comfortable. HEENT neck supple no JVD. Heart regular rate and rhythm S1 and S2. Lungs without rales wheezes. Abdomen soft positive bowel sounds. Extremities no edema. Medications Current Medications Medications Dose Ordered Sig/Priyanka Route Start Time Stop Time Status Last Admin Dose Admin Sodium Chloride 10 ml Q8HR IV 05/12/24 22:00 05/16/24 06:05 10 ML Acetaminophen 650 mg Q6HP PRN PO 05/12/24 20:15 Acetaminophen/ Hydrocodone Bitart 1 tab Q4HP PRN PO 05/12/24 20:15 05/16/24 09:18 1 TAB Hydromorphone HCl 0.5 mg Q4HP PRN IV 05/12/24 20:15 05/15/24 22:18 0.5 MG Ondansetron HCl 4 mg Q4HP PRN IV 05/12/24 20:15 05/15/24 15:08 4 MG Enoxaparin Sodium 40 mg DAILY SC 05/13/24 10:00 05/16/24 09:19 40 MG Haloperidol Lactate 2.5 mg Q8H PRN IM 05/12/24 20:30 05/13/24 22:24 2.5 MG Olanzapine 5 mg BID PO 05/13/24 22:00 05/16/24 09:18 5 MG Doxycycline Monohydrate 100 mg Q12HR PO 05/16/24 22:00 UNV Laboratory Results Laboratory Tests 05/16/24 05:45 Chemistry Test 05/16/24 05:45 Albumin 4.2 g/dL (3.2-4.8) Calcium Level 11.0 mg/dL (8.7-10.4) H Magnesium Level 2.0 mg/dL (1.6-2.6) Total Protein 6.8 g/dL (5.7-8.2) LFT Test 05/16/24 05:45 Alanine Aminotransferase (ALT) 53 U/L (7-40) H Alkaline Phosphatase 70 U/L (46-116) Aspartate Amino Transferase (AST) 45 U/L (13-40) H Total Bilirubin 0.5 mg/dL (0.2-1.0) Urinalysis Test 05/13/24 03:50 Urine Color Yellow (Yellow) Urine Clarity Turbid (Clear) H Urine pH 7.0 (5.0-9.0) Urine Specific [place] 1.020 (1.001-1.035) Urine Protein Trace (Negative) H Urine Ketones 2+ (Negative) H Urine Blood Trace /uL (Negative) H Urine Nitrite Negative (Negative) Urine Bilirubin Negative (Negative) Urine Urobilinogen Normal mg/dL (Negative) Urine Leukocyte Esterase 3+ /uL (Negative) Urine RBC 16 /hpf (0 - 4) Urine WBC 178 /hpf (0 - 5) Urine Squamous Epithelial Cells Mod /hpf (<5) Urine Bacteria None seen /hpf (None Seen) Urine Mucus Few (None Seen) Urine Glucose Normal mg/dL (Normal) Labs and/or images reviewed: Labs reviewed by me Assessment/Plan Assessment/Plan Patient medically stable. Given 5150 hold is removed and patient is requesting to go home I have advised social Service to see if daughter is willing to take patient home if okay with tele psychiatry. Otherwise we will keep her in the hospital till a psychiatric bed available for voluntary admission. However patient wants to go home given she has a apparently sudden sharp test and of this week. Discussed with the patient and nurse at bedside regarding care plan. [facility] take over this patient's care from 05/17/2024 am and further evaluate and manage as deemed appropriate. Discussed with them regarding patient's plan of care. Plan discussed with: Patient, Other My Orders Orders - MURPHY HERRERA MD Procedure Category Date Status Time *Tele Psych Consult CONS 05/15/24 Transmitted 18:59 Communication Order ORDERS 05/15/24 Transmitted 18:59 Transfer Service ORDERS 05/16/24 Transmitted 11:32 Doxycycline Tablet PHA 05/16/24 Logged (Vibramycin Tablet) 22:00 Problem List: (1) Psychosis (2) Altered mental status, unspecified Date of Service: May 16, 2024 Billing Provider: MURPHY HERRERA MD Common Visit Codes: [id number] INP/OBS CARE(MOD) MURPHY HERRERA MD May 16, 2024 14:32
[2024-05-16] MEDS: DOXYCYCLINE 100 MG TAB/CAP PO SCH (21:18)
[2024-05-17 05:00] VITALS: BP 150/99; PULSE 108; RESP 18; TEMP 98.6; O2SAT 98
[2024-05-17 09:00] VITALS: BP 135/63; PULSE 101; RESP 19; TEMP 98.2; O2SAT 96
[2024-05-17 12:46] VITALS: BP 141/77; PULSE 89; RESP 19; TEMP 98; O2SAT 96
[2024-05-17 14:14] LABS: Basophils # (auto) 0.1 10 ^3/uL (0-0.2); Basophils % (auto) 0.5 % (0.0-2.0); Eosinophils # (auto) 0.2 10 ^3/uL (0-0.8); Eosinophils % (auto) 1.8 % (0.0-7.0); Hematocrit 39.8 % (36.0-46.0); Hemoglobin 13.5 g/dL (12.2-16.2); Lymphocytes # (auto) 3.6 10 ^3/uL (0.4-5.4); Lymphocytes % (auto) 35.2 % (10.0-50.0); Mean Corpuscular Hemoglobin 30.9 pg (28.0-32.0); Mean Corpuscular Hgb Conc. 33.9 g/dL (32.0-36.0); Mean Corpuscular Volume 91.1 fL (80.0-100.0); Monocytes # (auto) 0.9 10 ^3/uL (0-1.3); Monocytes % (auto) 9.1 % (0.0-12.0); Neutrophils # (auto) 5.5 10 ^3/uL (1.6-8.6); Neutrophils % (auto) 53.4 % (37.0-80.0); Platelet Count (auto) 414 10^3/uL (140-450); Red Blood Cells 4.36 10^6/uL (4.0-5.20); Red Cell Distribution Width 12.9 % (11.8-14.3); White Blood Cell 10.2 10^3/uL (4.4-10.8)
[2024-05-17 14:34] LABS: Alanine Aminotransferase 47 U/L (7-40); Albumin 4.7 g/dL (3.2-4.8); Alkaline Phosphatase 77 U/L (46-116); Anion Gap 7 (5-15); Aspartate Aminotransferase 38 U/L (13-40); BUN/Creatinine Ratio 17.1 (10.0-20.0); Bilirubin, Total 0.5 mg/dL (0.2-1.0); Blood Urea Nitrogen 13 mg/dL (9-23); Calcium 11.3 mg/dL (8.7-10.4); Carbon Dioxide 28 mmol/L (20-31); Chloride 105 mmol/L (98-107); Glucose 101 mg/dL (74-106); Magnesium 2.1 mg/dL (1.6-2.6); Potassium 4.1 mmol/L (3.5-5.1); Sodium 140 mmol/L (136-145)
[2024-05-17 14:35] LABS: Total Protein 7.5 g/dL (5.7-8.2)
[2024-05-17 17:00] VITALS: BP 134/87; PULSE 90; RESP 19; TEMP 97.1; O2SAT 98
--- NOTE | 2024-05-17 17:17 | DVHINCON2 ---
Date of Service if different f: May 17, 2024 Consultation ([facility]) Consulting Physician: DEANN DICKENS MD Labs Laboratory Tests Test 05/12/24 16:11 05/13/24 03:50 05/17/24 13:55 Vitamin B12 Level 436 pg/mL (211-911) Folic Acid (LAB) 30.04 ng/mL (>5.38) Thyroid Stimulating Hormone (TSH) 1.07 uIU/mL (0.55-4.78) Free Thyroxine (T4) Calculated 1.41 ng/dL (0.89-1.76) Urine Color Yellow (Yellow) Urine Clarity Turbid (Clear) Urine pH 7.0 (5.0-9.0) Urine Specific [place] 1.020 (1.001-1.035) Urine Protein Trace (Negative) Urine Ketones 2+ (Negative) Urine Blood Trace /uL (Negative) Urine Nitrite Negative (Negative) Urine Bilirubin Negative (Negative) Urine Urobilinogen Normal mg/dL (Negative) Urine Leukocyte Esterase 3+ /uL (Negative) Urine RBC 16 /hpf (0 - 4) Urine WBC 178 /hpf (0 - 5) Urine Squamous Epithelial Cells Mod /hpf (<5) Urine Bacteria None seen /hpf (None Seen) Urine Mucus Few (None Seen) Urine Glucose Normal mg/dL (Normal) Urine Opiates Screen Neg (NEGATIVE) Urine Fentanyl Screen Neg (NEGATIVE) Urine Barbiturates Screen Neg (NEGATIVE) Urine Phencyclidine Screen Neg (NEGATIVE) Urine Amphetamines Screen Neg (NEGATIVE) Urine Benzodiazepines Screen Neg (NEGATIVE) Urine Cocaine Screen Neg (NEGATIVE) Urine Cannabinoids Screen Pos (NEGATIVE) White Blood Count 10.2 10^3/uL (4.4-10.8) Red Blood Count 4.36 10^6/uL (4.0-5.20) Hemoglobin 13.5 g/dL (12.2-16.2) Hematocrit 39.8 % (36.0-46.0) Mean Corpuscular Volume 91.1 fL (80.0-100.0) Mean Corpuscular Hemoglobin 30.9 pg (28.0-32.0) Mean Corpuscular Hemoglobin Concent 33.9 g/dL (32.0-36.0) Red Cell Distribution Width 12.9 % (11.8-14.3) Platelet Count 414 10^3/uL (140-450) Mean Platelet Volume 7.0 fL (6.9-10.8) Neutrophils (%) (Auto) 53.4 % (37.0-80.0) Lymphocytes (%) (Auto) 35.2 % (10.0-50.0) Monocytes (%) (Auto) 9.1 % (0.0-12.0) Eosinophils (%) (Auto) 1.8 % (0.0-7.0) Basophils (%) (Auto) 0.5 % (0.0-2.0) Neutrophils # (Auto) 5.5 10 ^3/uL (1.6-8.6) Lymphocytes # (Auto) 3.6 10 ^3/uL (0.4-5.4) Monocytes # (Auto) 0.9 10 ^3/uL (0-1.3) Eosinophils # (Auto) 0.2 10 ^3/uL (0-0.8) Basophils # (Auto) 0.1 10 ^3/uL (0-0.2) Nucleated Red Blood Cells 0.0 % Sodium Level 140 mmol/L (136-145) Potassium Level 4.1 mmol/L (3.5-5.1) Chloride Level 105 mmol/L (98-107) Carbon Dioxide Level 28 mmol/L (20-31) Anion Gap 7 (5-15) Blood Urea Nitrogen 13 mg/dL (9-23) Creatinine 0.76 mg/dL (0.550-1.02) Glomerular Filtration Rate Calc 89 mL/min (>90) BUN/Creatinine Ratio 17.1 (10.0-20.0) Serum Glucose 101 mg/dL (74-106) Calcium Level 11.3 mg/dL (8.7-10.4) Magnesium Level 2.1 mg/dL (1.6-2.6) Total Bilirubin 0.5 mg/dL (0.2-1.0) Aspartate Amino Transf (AST/SGOT) 38 U/L (13-40) Alanine Aminotransferase (ALT/SGPT) 47 U/L (7-40) Alkaline Phosphatase 77 U/L (46-116) Total Protein 7.5 g/dL (5.7-8.2) Albumin 4.7 g/dL (3.2-4.8) Appetite: Fair Appearance: Stated age, Disheveled Psychomotor activity: Restless Behavioral: [place] Eye contact: Limited Speech: WNL Affect: Guarded Mood: Euthymic Thought processes: Preservative, Disorganized Thought content: Paranoid Suicidal ideations: Absent Homicidal ideations: Absent Orientation: Person, Place, Time, Confused Memory intact: Recent Intellect: Average Abstractability: Marginal Concentration: Limited Attention: Limited Judgement: Poor Insight: Poor Vitals Vital Signs Date Time Temp Pulse Resp B/P (MAP) Pulse Ox O2 Delivery O2 Flow Rate FiO2 05/17/24 12:46 98.0 89 19 141/77 (98) 96 98.0 05/16/24 00:06 Room Air* 0 21 Current medications Current Medications Medications Dose Ordered Sig/Priyanka Route Start Time Stop Time Status Last Admin Dose Admin Sodium Chloride 10 ml Q8HR IV 05/12/24 22:00 05/17/24 13:47 10 ML Acetaminophen 650 mg Q6HP PRN PO 05/12/24 20:15 Acetaminophen/ Hydrocodone Bitart 1 tab Q4HP PRN PO 05/12/24 20:15 05/17/24 10:07 1 TAB Hydromorphone HCl 0.5 mg Q4HP PRN IV 05/12/24 20:15 05/15/24 22:18 0.5 MG Ondansetron HCl 4 mg Q4HP PRN IV 05/12/24 20:15 05/15/24 15:08 4 MG Enoxaparin Sodium 40 mg DAILY SC 05/13/24 10:00 05/17/24 10:04 40 MG Haloperidol Lactate 2.5 mg Q8H PRN IM 05/12/24 20:30 05/17/24 05:50 2.5 MG Olanzapine 5 mg BID PO 05/13/24 22:00 05/17/24 10:04 5 MG Doxycycline Monohydrate 100 mg Q12HR PO 05/16/24 22:00 05/17/24 10:04 100 MG Treatment plan discussed: With staff Medication adjusted: No Diagnosis: unspecified psychosis Plan : recommend to continue 5150hold for GD and recent attempts to jump from roof. She remains paranoid and has not viable self-care plans. Transfer to inpatient psychiatric facility. Continue zyprexa 5mg po BID History of Present Illness Reason for Consult : follow up psychiatric evaluation. HPI : This is a 63-year-old female with prior hx of psychosis BIB family for evaluation after hx of aggression and trying to jump from roof. Pt had initial evaluation done on 05/13/24 with recommendation for 5150hold. Pt is re-evaluated today via telepsychiatry, she remains paranoid reporting that "an organization", named, "minute men" are after her and threatening to kill her. She denies auditory/visual hallucination, but appears distracted, preoccupied. She denies feeling depressed, but reports feeling anxious. When asked about self-care plans, she reports she can visit her son but unable to live there. She is unable to provide plan to care for herself if discharged as family is not willing to have at their homes per report. MANAN FUENTES DNP May 17, 2024 17:17
--- NOTE | 2024-05-17 20:13 | DVHPN2 ---
Progress Note - Dictate Date Seen: May 17, 2024 Medical Necessity Reason Pt with a Central, PICC or Fol: No Subjective Ms. Nunez is a 63 years old right-handed female with a history of dyslipidemia, gout, arthritis, the patient came to the hospital with a chief company of psychosis. I have seen and examined the patient, I have talked to her nurse, her daughter is in the room. she is alert, oriented x3. No new complaints She had poor sleep last night she reports constipation She drinks a lot of water daily UDS, 05/13/2024: Cannabinoids Urinalysis, 05/13/2024: WBC: 178, urine leukocyte esterase: 3+ CBC, 05/13/2024: Unremarkable BMP, 05/13/2024: Unremarkable TBI/AST/ALT/AP, 05/13/2024: // Vitamin B12, 04/2024: Folic acid, 05/12/24: TSH, 05/12/2024: 1.07 CT head, 05/12/2024: No acute intracranial abnormality CT C-spine, 05/14/2024: 1. No evidence of acute cervical spine fracture or traumatic malalignment. 2. Multilevel cervical spondylosis. vital signs Vital Sign Date Time Temp Pulse Resp B/P (MAP) Pulse Ox O2 Delivery O2 Flow Rate FiO2 05/17/24 17:00 97.1 90 19 134/87 (103) 98 97.1 05/16/24 00:06 Room Air* 0 21 medications Current Medications Medications Dose Ordered Sig/Priyanka Route Start Time Stop Time Status Last Admin Dose Admin Sodium Chloride 10 ml Q8HR IV 05/12/24 22:00 05/17/24 13:47 10 ML Acetaminophen 650 mg Q6HP PRN PO 05/12/24 20:15 Acetaminophen/ Hydrocodone Bitart 1 tab Q4HP PRN PO 05/12/24 20:15 05/17/24 10:07 1 TAB Hydromorphone HCl 0.5 mg Q4HP PRN IV 05/12/24 20:15 05/15/24 22:18 0.5 MG Ondansetron HCl 4 mg Q4HP PRN IV 05/12/24 20:15 05/15/24 15:08 4 MG Enoxaparin Sodium 40 mg DAILY SC 05/13/24 10:00 05/17/24 10:04 40 MG Haloperidol Lactate 2.5 mg Q8H PRN IM 05/12/24 20:30 05/17/24 05:50 2.5 MG Olanzapine 5 mg BID PO 05/13/24 22:00 05/17/24 10:04 5 MG Doxycycline Monohydrate 100 mg Q12HR PO 05/16/24 22:00 05/17/24 10:04 100 MG objective General: the patient is well developed and nourished. No acute distress. MUSCULOSKELETAL EXAM: Tenderness to palpation in the neck, shoulders, and whole back MENTAL STATUS: Awake and alert. Oriented to person, place, time and general circumstances. SPEECH, LANGUAGE, HIGHER CORTICAL FUNCTION: no aphasia or dysathria. CRANIAL NERVES: Pupils are equal, round and reactive. EOMs full and conjugate. No nystagmus. Facial sensation intact in all three divisions bilaterally. Mandibular strength intact. Facial muscles symmetrical and strength intact. SENSATION: Sensation to touch and pinprick is normal. MOTOR: Normal tone in the upper and lower extremity. Normal muscle bulk. No fasciculations. No abnormal movements or posturing. Muscle strength of the major groups in the extremities is 5/5. REFLEXES: Deep tendon reflexes normal and symmetrical. No pathological reflexes. CEREBELLAR/COORDINATION: Finger to nose and heel to araujo are normal bilaterally. GAIT/STATION: Within normal limits laboratory and microbiology Laboratory Tests 05/17/24 13:55 Test 05/17/24 13:55 Range/Units Serum Glucose 101 74-106 mg/dL Problem List ? Psychosis with suicidal attempt Fall injury Constipation Assessment/Plan Monitoring Supportive treatment Telemetry Good hydration Zyprexa 5 mg b.i.d. A trial of docusate 240 mg daily 5150 hold This medical document was created using an electronic medical record system with [employer] dictation system. Although this document has been carefully reviewed, there may still be some phonetic and typographical errors. These areas are purely typographical due to imperfections of the software programs, and do not reflect any compromise in the patient's medical care. Prognosis poor Dietary Evaluation Review Comments: Continue current plan of care Expected Outcomes/Goals: F/U in 5-7 days Plan discussed with: Patient, Daughter, Other DEANN DICKENS MD May 17, 2024 20:13
[2024-05-17 20:54] VITALS: BP 137/74; PULSE 89; RESP 16; TEMP 98.5; O2SAT 97
--- NOTE | 2024-05-17 22:25 | DVHPN2 ---
Subjective hostile and abusive overnight which apparently happening every night. could be delirium ontop on psychotis. she has a rash from her tele leads today. Reviewed: H&P Changes from previous H/P or p: No Changes General: Per HPI Objective Vitals Vital Signs Date Time Temp Pulse Resp B/P (MAP) Pulse Ox O2 Delivery O2 Flow Rate FiO2 05/17/24 20:54 98.5 89 16 137/74 (95) 97 98.5 05/16/24 00:06 Room Air* 0 21 Intake/Output Intake and Output 05/17/24 07:00 # Voids 4 Exam GEN: Healthy appearing, well-developed, NAD. CV: RRR, no m/r/g. LUNGS: CTAB, no w/r/c. ABD: Soft, NT/ND, NBS, no masses or organomegaly. EXT: No clubbing, cyanosis, or edema. skin Warm, well perfused. NEURO: Ambulating with no limitations. No focal deficits. appears anxious. Medications Current Medications Medications Dose Ordered Sig/Priyanka Route Start Time Stop Time Status Last Admin Dose Admin Sodium Chloride 10 ml Q8HR IV 05/12/24 22:00 05/17/24 21:01 10 ML Acetaminophen 650 mg Q6HP PRN PO 05/12/24 20:15 Acetaminophen/ Hydrocodone Bitart 1 tab Q4HP PRN PO 05/12/24 20:15 05/17/24 21:02 1 TAB Hydromorphone HCl 0.5 mg Q4HP PRN IV 05/12/24 20:15 05/15/24 22:18 0.5 MG Ondansetron HCl 4 mg Q4HP PRN IV 05/12/24 20:15 05/15/24 15:08 4 MG Enoxaparin Sodium 40 mg DAILY SC 05/13/24 10:00 05/17/24 10:04 40 MG Haloperidol Lactate 2.5 mg Q8H PRN IM 05/12/24 20:30 05/17/24 05:50 2.5 MG Olanzapine 5 mg BID PO 05/13/24 22:00 05/17/24 21:01 5 MG Doxycycline Monohydrate 100 mg Q12HR PO 05/16/24 22:00 05/17/24 21:01 100 MG Docusate Calcium 240 mg DAILY PO 05/18/24 10:00 Laboratory Results Laboratory Tests 05/17/24 13:55 Chemistry Test 05/17/24 13:55 Albumin 4.7 g/dL (3.2-4.8) Calcium Level 11.3 mg/dL (8.7-10.4) H Magnesium Level 2.1 mg/dL (1.6-2.6) Total Protein 7.5 g/dL (5.7-8.2) LFT Test 05/17/24 13:55 Alanine Aminotransferase (ALT) 47 U/L (7-40) H Alkaline Phosphatase 77 U/L (46-116) Aspartate Amino Transferase (AST) 38 U/L (13-40) Total Bilirubin 0.5 mg/dL (0.2-1.0) Urinalysis Test 05/13/24 03:50 Urine Color Yellow (Yellow) Urine Clarity Turbid (Clear) H Urine pH 7.0 (5.0-9.0) Urine Specific [place] 1.020 (1.001-1.035) Urine Protein Trace (Negative) H Urine Ketones 2+ (Negative) H Urine Blood Trace /uL (Negative) H Urine Nitrite Negative (Negative) Urine Bilirubin Negative (Negative) Urine Urobilinogen Normal mg/dL (Negative) Urine Leukocyte Esterase 3+ /uL (Negative) Urine RBC 16 /hpf (0 - 4) Urine WBC 178 /hpf (0 - 5) Urine Squamous Epithelial Cells Mod /hpf (<5) Urine Bacteria None seen /hpf (None Seen) Urine Mucus Few (None Seen) Urine Glucose Normal mg/dL (Normal) Assessment/Plan Assessment/Plan update - plan to send patient to acute psychiatric facility. psych agress with 5150 hold. social working on placement and transfer. Psychosis with suicidal attempt - tele psych. opn 5150 hold and on Zyprexa 5 mg b.i.d. acute encephalopathy resolved Fall injury Constipation - on docusate. diet - regular DVT ppx - pt OOB - GI ppx - ana diet - cont med-surg admission until placement to psych facility. Plan discussed with: Patient My Orders Orders - LINDA GAFFNEY MD Procedure Category Date Status Time Transfer Orders XFER 05/17/24 Transmitted 18:07 Date of Service: May 17, 2024 Billing Provider: LINDA GAFFNEY MD Common Visit Codes: [id number] INP/OBS CARE(MOD) LINDA GAFFNEY MD May 17, 2024 22:25
[2024-05-18] VITALS (7 sets, daily range): BP systolic 123–144; BP diastolic 64–82; PULSE 82–93; RESP 18–21; TEMP 97.7–98.2; O2SAT 95–98
[2024-05-18] MEDS: DOCUSATE CALCIUM 240 MG CAP PO SCH (08:56)
[2024-05-18] MEDS: ACETAMINOPHEN 325 MG TAB PO PRN (18:33)
--- NOTE | 2024-05-18 18:57 | DVHPN2 ---
Subjective This is a 63 year female who was seen for evaluation via telepsychiatry. Patient is a poor historian and seems to be minimizing her recent behavior. She denies feeling depressed. She reported good sleep and appetite. She denied feeling hopeless or worthless. She denied any auditory visual hallucination. She presents paranoid. As per nursing staff patient has been indulging in aggressive behavior towards family and family is concerned about her safety and safety of other family members. update -05/17 - hostile and abusive overnight which apparently happening every night. could be delirium ontop on psychotis. she has a rash from her tele leads today. - 05/18 - much better overnight. lost iv access today. Reviewed: H&P Changes from previous H/P or p: No Changes General: Per HPI Objective Vitals Vital Signs Date Time Temp Pulse Resp B/P (MAP) Pulse Ox O2 Delivery O2 Flow Rate FiO2 05/18/24 16:44 98.0 88 18 123/64 (83) 95 98.0 05/18/24 08:00 Room Air* 0 21 Intake/Output Intake and Output 05/18/24 07:00 Intake Total 2445 ml Balance 2445 ml Intake Oral 2445 ml # Voids 12 # Bowel Movements 1 Exam GEN: Healthy appearing, well-developed, NAD. CV: RRR, no m/r/g. LUNGS: CTAB, no w/r/c. ABD: Soft, NT/ND, NBS, no masses or organomegaly. EXT: No clubbing, cyanosis, or edema. skin Warm, well perfused. NEURO: Ambulating with no limitations. No focal deficits. appears anxious. Medications Current Medications Medications Dose Ordered Sig/Priyanka Route Start Time Stop Time Status Last Admin Dose Admin Sodium Chloride 10 ml Q8HR IV 05/12/24 22:00 05/18/24 15:45 10 ML Acetaminophen 650 mg Q6HP PRN PO 05/12/24 20:15 Acetaminophen/ Hydrocodone Bitart 1 tab Q4HP PRN PO 05/12/24 20:15 05/18/24 15:46 1 TAB Hydromorphone HCl 0.5 mg Q4HP PRN IV 05/12/24 20:15 05/15/24 22:18 0.5 MG Ondansetron HCl 4 mg Q4HP PRN IV 05/12/24 20:15 05/15/24 15:08 4 MG Enoxaparin Sodium 40 mg DAILY SC 05/13/24 10:00 05/18/24 08:56 40 MG Haloperidol Lactate 2.5 mg Q8H PRN IM 05/12/24 20:30 05/17/24 05:50 2.5 MG Olanzapine 5 mg BID PO 05/13/24 22:00 05/18/24 08:56 5 MG Doxycycline Monohydrate 100 mg Q12HR PO 05/16/24 22:00 05/18/24 08:56 100 MG Docusate Calcium 240 mg DAILY PO 05/18/24 10:00 05/18/24 08:56 240 MG Laboratory Results Laboratory Tests 05/17/24 13:55 Urinalysis Test 05/13/24 03:50 Urine Color Yellow (Yellow) Urine Clarity Turbid (Clear) H Urine pH 7.0 (5.0-9.0) Urine Specific [place] 1.020 (1.001-1.035) Urine Protein Trace (Negative) H Urine Ketones 2+ (Negative) H Urine Blood Trace /uL (Negative) H Urine Nitrite Negative (Negative) Urine Bilirubin Negative (Negative) Urine Urobilinogen Normal mg/dL (Negative) Urine Leukocyte Esterase 3+ /uL (Negative) Urine RBC 16 /hpf (0 - 4) Urine WBC 178 /hpf (0 - 5) Urine Squamous Epithelial Cells Mod /hpf (<5) Urine Bacteria None seen /hpf (None Seen) Urine Mucus Few (None Seen) Urine Glucose Normal mg/dL (Normal) Labs and/or images reviewed: Labs reviewed by me, Image(s) reviewed by me Assessment/Plan Assessment/Plan update - still waiting on facility. plan to send patient to acute psychiatric facility. psych agress with 5150 hold. social working on placement and transfer. Psychosis with suicidal attempt - tele psych. opn 5150 hold and on Zyprexa 5 mg b.i.d. acute encephalopathy resolved Fall injury Constipation - on docusate. diet - regular DVT ppx - pt OOB - GI ppx - ana diet - cont med-surg admission until placement to psych facility. Plan discussed with: Other Date of Service: May 18, 2024 Billing Provider: LINDA GAFFNEY MD Common Visit Codes: [id number] INP/OBS CARE(MOD) LINDA GAFFNEY MD May 18, 2024 18:57
[2024-05-19 01:00] VITALS: BP 157/77; PULSE 84; RESP 18; TEMP 98.5; O2SAT 97
[2024-05-19 05:00] VITALS: BP 140/84; PULSE 67; RESP 18; TEMP 98.1; O2SAT 99
[2024-05-19 08:00] VITALS: RESP 18
[2024-05-19 09:00] VITALS: BP 136/67; PULSE 93; RESP 18; TEMP 97.9; O2SAT 99
[2024-05-19] MEDS: HALOPERIDOL LACTATE 5 MG/ML INJ VIAL ONE (12:15)
[2024-05-19] MEDS ORDERED: LORazepam 2MG/ML-1ML VIAL IV PRN (13:00)
[2024-05-19] MEDS: diphenhdrAMINE HCL 50 MG/1 ML VL IV ONE ×2 (13:33→17:26)
--- NOTE | 2024-05-19 16:46 | DVHPN2 ---
Subjective Patient with prior psychiatric history, hostile and abusive for the past couple of days, patient was found crawling on the floor, pulling on tables, unable to be reoriented, per telemetry consult patient on psych hold for attempt to jump off a roof. Patient has multiple self harming behavioral, aggressive towards staff. Multiple attempt to deescalate and reorient patient have been attempted NS unsuccessful. Decision made to chemically and physically restrain patient. Patient will need to be transferred to a facility with locked. Patient is pending transfer to acute psychiatric care facility. Total critical care time spent on this patient more than 30 minutes including evaluation, chart review, formulating plan and communication with team, excluding any procedures Reviewed: H&P Changes from previous H/P or p: No Changes General: Per HPI Objective Vitals Vital Signs Date Time Temp Pulse Resp B/P (MAP) Pulse Ox O2 Delivery O2 Flow Rate FiO2 05/19/24 08:00 18 Room Air* 0 21 05/19/24 05:00 98.1 67 140/84 (102) 99 98.1 Intake/Output Intake and Output 05/19/24 07:00 Intake Total 1800 ml Balance 1800 ml Intake Oral 1800 ml # Voids 9 Medications Current Medications Medications Dose Ordered Sig/Priyanka Route Start Time Stop Time Status Last Admin Dose Admin Sodium Chloride 10 ml Q8HR IV 05/12/24 22:00 05/18/24 15:45 10 ML Acetaminophen 650 mg Q6HP PRN PO 05/12/24 20:15 Acetaminophen/ Hydrocodone Bitart 1 tab Q4HP PRN PO 05/12/24 20:15 05/18/24 15:46 1 TAB Hydromorphone HCl 0.5 mg Q4HP PRN IV 05/12/24 20:15 05/15/24 22:18 0.5 MG Ondansetron HCl 4 mg Q4HP PRN IV 05/12/24 20:15 05/15/24 15:08 4 MG Enoxaparin Sodium 40 mg DAILY SC 05/13/24 10:00 05/18/24 08:56 40 MG Haloperidol Lactate 2.5 mg Q8H PRN IM 05/12/24 20:30 05/17/24 05:50 2.5 MG Olanzapine 5 mg BID PO 05/13/24 22:00 05/18/24 08:56 5 MG Doxycycline Monohydrate 100 mg Q12HR PO 05/16/24 22:00 05/18/24 08:56 100 MG Docusate Calcium 240 mg DAILY PO 05/18/24 10:00 05/18/24 08:56 240 MG Laboratory Results Laboratory Tests 05/17/24 13:55 Urinalysis Test 05/13/24 03:50 Urine Color Yellow (Yellow) Urine Clarity Turbid (Clear) H Urine pH 7.0 (5.0-9.0) Urine Specific [place] 1.020 (1.001-1.035) Urine Protein Trace (Negative) H Urine Ketones 2+ (Negative) H Urine Blood Trace /uL (Negative) H Urine Nitrite Negative (Negative) Urine Bilirubin Negative (Negative) Urine Urobilinogen Normal mg/dL (Negative) Urine Leukocyte Esterase 3+ /uL (Negative) Urine RBC 16 /hpf (0 - 4) Urine WBC 178 /hpf (0 - 5) Urine Squamous Epithelial Cells Mod /hpf (<5) Urine Bacteria None seen /hpf (None Seen) Urine Mucus Few (None Seen) Urine Glucose Normal mg/dL (Normal) Labs and/or images reviewed: Labs reviewed by me, Image(s) reviewed by me Assessment/Plan Assessment/Plan Acute psychosis Suicidal attempt Acute encephalopathy, resolved Constipation resolved Transferred to acute psychiatric facility Continue with 5150 hold Continue with Zyprexa 5 mg b.i.d. Reconsult tele psych Patient will need to be chemically restrained at this point P.r.n. Haldol for chemical restraint For safety of self harm, patient need to be restrained physically Spit mask One on 1 direct observation for self-harm behavior Remove lines and tubes from the vicinity Diet on hold DVT prophylaxis ambulatory Plan discussed with: Other Date of Service: May 19, 2024 Billing Provider: YA DRAKE MD Common Visit Codes: [id number] INP/OBS CARE(HIGH), [id number] CARE 30-74 MIN YA DRAKE MD May 19, 2024 16:46
[2024-05-19 17:00] VITALS: BP 138/73; PULSE 95; RESP 20; TEMP 98.3; O2SAT 96
[2024-05-19] MEDS: LORazepam 2MG/ML-1ML VIAL IV ONE (18:30)
[2024-05-19 20:00] VITALS: PULSE 65; RESP 18; O2SAT 94
[2024-05-20 05:00] VITALS: BP 111/61; PULSE 66; RESP 18; TEMP 98; O2SAT 96
[2024-05-20] MEDS: HALOPERIDOL LACTATE 5 MG/ML INJ VIAL IM PRN (05:06)
[2024-05-20 08:00] VITALS: PULSE 70; RESP 18; O2SAT 96
[2024-05-20 08:53] VITALS: BP 117/62; PULSE 96; RESP 16; TEMP 97.5; O2SAT 96
--- NOTE | 2024-05-20 16:30 | DVHPN2 ---
Subjective Patient with prior psychiatric history, hostile and abusive for the past couple of days, patient was found crawling on the floor, pulling on tables, unable to be reoriented, per telemetry consult patient on psych hold for attempt to jump off a roof. Patient has multiple self harming behavioral, aggressive towards staff. Multiple attempt to deescalate and reorient patient have been attempted NS unsuccessful. Decision made to chemically. Patient will need to be transferred to a facility with locked. Sickle restrain off today Evaluation, patient mental status unchanged. Patient pending transfer to acute care psychiatric facility. Reviewed: H&P Changes from previous H/P or p: No Changes General: Per HPI Objective Vitals Vital Signs Date Time Temp Pulse Resp B/P (MAP) Pulse Ox O2 Delivery O2 Flow Rate FiO2 05/20/24 08:53 97.5 96 16 117/62 (80) 96 97.5 05/20/24 08:00 Room Air* 0 21 Intake/Output Intake and Output 05/20/24 07:00 Intake Total 2000 ml Output Total 500 ml Balance 1500 ml Intake Oral 2000 ml Output Urine Total 500 ml # Voids 10 # Bowel Movements 2 Medications Current Medications Medications Dose Ordered Sig/Priyanka Route Start Time Stop Time Status Last Admin Dose Admin Sodium Chloride 10 ml Q8HR IV 05/12/24 22:00 05/18/24 15:45 10 ML Acetaminophen 650 mg Q6HP PRN PO 05/12/24 20:15 Acetaminophen/ Hydrocodone Bitart 1 tab Q4HP PRN PO 05/12/24 20:15 05/18/24 15:46 1 TAB Hydromorphone HCl 0.5 mg Q4HP PRN IV 05/12/24 20:15 05/15/24 22:18 0.5 MG Ondansetron HCl 4 mg Q4HP PRN IV 05/12/24 20:15 05/15/24 15:08 4 MG Enoxaparin Sodium 40 mg DAILY SC 05/13/24 10:00 05/18/24 08:56 40 MG Haloperidol Lactate 2.5 mg Q8H PRN IM 05/12/24 20:30 05/17/24 05:50 2.5 MG Olanzapine 5 mg BID PO 05/13/24 22:00 05/18/24 08:56 5 MG Doxycycline Monohydrate 100 mg Q12HR PO 05/16/24 22:00 05/18/24 08:56 100 MG Docusate Calcium 240 mg DAILY PO 05/18/24 10:00 05/18/24 08:56 240 MG Laboratory Results Laboratory Tests 05/17/24 13:55 Urinalysis Test 05/13/24 03:50 Urine Color Yellow (Yellow) Urine Clarity Turbid (Clear) H Urine pH 7.0 (5.0-9.0) Urine Specific [place] 1.020 (1.001-1.035) Urine Protein Trace (Negative) H Urine Ketones 2+ (Negative) H Urine Blood Trace /uL (Negative) H Urine Nitrite Negative (Negative) Urine Bilirubin Negative (Negative) Urine Urobilinogen Normal mg/dL (Negative) Urine Leukocyte Esterase 3+ /uL (Negative) Urine RBC 16 /hpf (0 - 4) Urine WBC 178 /hpf (0 - 5) Urine Squamous Epithelial Cells Mod /hpf (<5) Urine Bacteria None seen /hpf (None Seen) Urine Mucus Few (None Seen) Urine Glucose Normal mg/dL (Normal) Labs and/or images reviewed: Labs reviewed by me, Image(s) reviewed by me Assessment/Plan Assessment/Plan Acute psychosis Suicidal attempt Acute encephalopathy, resolved Constipation resolved Transferred to acute psychiatric facility Continue with 5150 hold Continue with Zyprexa 5 mg b.i.d. Reconsult tele psych Patient will need to be chemically restrained at this point P.r.n. Haldol for chemical restraint For safety of self harm, patient need to be restrained chemically Spit mask One on 1 direct observation for self-harm behavior Remove lines and tubes from the vicinity Diet on hold DVT prophylaxis ambulatory Plan discussed with: Other Date of Service: May 20, 2024 Billing Provider: YA DRAKE MD Common Visit Codes: [id number] INP/OBS CARE(HIGH) YA DRAKE MD May 20, 2024 16:30
[2024-05-20 16:51] VITALS: BP 124/72; PULSE 93; RESP 18; TEMP 97.9; O2SAT 96
[2024-05-20] MEDS: SALINE 0.65 % NASAL SPRAY 45ML BOTTLE EACHNOSTRI ONE (19:30)
[2024-05-20 20:00] VITALS: PULSE 86; RESP 18; O2SAT 96
[2024-05-20] MEDS: PANTOPRAZOLE 40 MG TAB PO ONE (20:47)
[2024-05-20 21:06] VITALS: BP 130/70; PULSE 74; RESP 17; TEMP 97.5; O2SAT 96
[2024-05-21 08:00] VITALS: PULSE 71; RESP 18; O2SAT 98
[2024-05-21 08:33] VITALS: BP 143/70; PULSE 71; RESP 18; TEMP 97.8; O2SAT 98
[2024-05-21] MEDS: PANTOPRAZOLE 40 MG TAB PO SCH (09:15)
[2024-05-21 12:32] VITALS: BP 136/73; PULSE 91; RESP 18; TEMP 98.5; O2SAT 97
[2024-05-21 16:32] VITALS: BP 142/81; PULSE 95; RESP 16; TEMP 97.9; O2SAT 96
[2024-05-21 20:00] VITALS: PULSE 97; RESP 18; O2SAT 99
[2024-05-21 21:00] VITALS: BP 143/75; PULSE 97; RESP 18; TEMP 97.8; O2SAT 99
[2024-05-22] VITALS (7 sets, daily range): BP systolic 122–147; BP diastolic 76–83; PULSE 89–110; RESP 18–19; TEMP 97.6–98.6; O2SAT 94–99
--- NOTE | 2024-05-22 10:42 | DVHPN2 ---
Subjective This is a 63 year female who was seen for evaluation via telepsychiatry. Patient is a poor historian and seems to be minimizing her recent behavior. She denies feeling depressed. She reported good sleep and appetite. She denied feeling hopeless or worthless. She denied any auditory visual hallucination. She presents paranoid. As per nursing staff patient has been indulging in aggressive behavior towards family and family is concerned about her safety and safety of other family members. update -05/17 - hostile and abusive overnight which apparently happening every night. could be delirium ontop on psychotis. she has a rash from her tele leads today. - 05/18 - much better overnight. lost iv access today. - 05/21 - improved in behavioural aspect. more calm. Reviewed: H&P Changes from previous H/P or p: No Changes General: Per HPI Objective Vitals Vital Signs Date Time Temp Pulse Resp B/P (MAP) Pulse Ox O2 Delivery O2 Flow Rate FiO2 05/22/24 08:32 98.1 89 18 122/78 (93) 98 98.1 05/21/24 20:00 Room Air* 0 21 Intake/Output Intake and Output 05/22/24 07:00 Intake Total 3640 ml Balance 3640 ml Intake Oral 3640 ml # Voids 15 # Bowel Movements 2 Exam GEN: Healthy appearing, well-developed, NAD. CV: RRR, no m/r/g. LUNGS: CTAB, no w/r/c. ABD: Soft, NT/ND, NBS, no masses or organomegaly. EXT: No clubbing, cyanosis, or edema. skin Warm, well perfused. NEURO: Ambulating with no limitations. No focal deficits. appears anxious. Medications Current Medications Medications Dose Ordered Sig/Priyanka Route Start Time Stop Time Status Last Admin Dose Admin Sodium Chloride 10 ml Q8HR IV 05/12/24 22:00 05/18/24 15:45 10 ML Acetaminophen 650 mg Q6HP PRN PO 05/12/24 20:15 Acetaminophen/ Hydrocodone Bitart 1 tab Q4HP PRN PO 05/12/24 20:15 05/18/24 15:46 1 TAB Hydromorphone HCl 0.5 mg Q4HP PRN IV 05/12/24 20:15 05/15/24 22:18 0.5 MG Ondansetron HCl 4 mg Q4HP PRN IV 05/12/24 20:15 05/15/24 15:08 4 MG Enoxaparin Sodium 40 mg DAILY SC 05/13/24 10:00 05/18/24 08:56 40 MG Haloperidol Lactate 2.5 mg Q8H PRN IM 05/12/24 20:30 05/17/24 05:50 2.5 MG Olanzapine 5 mg BID PO 05/13/24 22:00 05/18/24 08:56 5 MG Doxycycline Monohydrate 100 mg Q12HR PO 05/16/24 22:00 05/18/24 08:56 100 MG Docusate Calcium 240 mg DAILY PO 05/18/24 10:00 05/18/24 08:56 240 MG Laboratory Results Laboratory Tests 05/17/24 13:55 Urinalysis Test 05/13/24 03:50 Urine Color Yellow (Yellow) Urine Clarity Turbid (Clear) H Urine pH 7.0 (5.0-9.0) Urine Specific [place] 1.020 (1.001-1.035) Urine Protein Trace (Negative) H Urine Ketones 2+ (Negative) H Urine Blood Trace /uL (Negative) H Urine Nitrite Negative (Negative) Urine Bilirubin Negative (Negative) Urine Urobilinogen Normal mg/dL (Negative) Urine Leukocyte Esterase 3+ /uL (Negative) Urine RBC 16 /hpf (0 - 4) Urine WBC 178 /hpf (0 - 5) Urine Squamous Epithelial Cells Mod /hpf (<5) Urine Bacteria None seen /hpf (None Seen) Urine Mucus Few (None Seen) Urine Glucose Normal mg/dL (Normal) Labs and/or images reviewed: Labs reviewed by me, Image(s) reviewed by me Assessment/Plan Assessment/Plan update - still waiting on facility. plan to send patient to acute psychiatric facility. psych agress with 5150 hold. social working on placement and transfer. #Psychosis with suicidal attempt - tele psych. opn 5150 hold and on Zyprexa 5 mg b.i.d. #acute encephalopathy resolved #Fall injury #Constipation - on docusate. diet - regular DVT ppx - pt OOB - GI ppx - ana diet cont med-surg admission until placement to psych facility. Plan discussed with: Patient, Other Date of Service: May 21, 2024 Billing Provider: LINDA GAFFNEY MD Common Visit Codes: [id number] INP/OBS CARE(MOD) LINDA GAFFNEY MD May 22, 2024 10:42
--- NOTE | 2024-05-22 21:26 | DVHPN2 ---
Subjective This is a 63 year female who was seen for evaluation via telepsychiatry. Patient is a poor historian and seems to be minimizing her recent behavior. She denies feeling depressed. She reported good sleep and appetite. She denied feeling hopeless or worthless. She denied any auditory visual hallucination. She presents paranoid. As per nursing staff patient has been indulging in aggressive behavior towards family and family is concerned about her safety and safety of other family members. update -05/17 - hostile and abusive overnight which apparently happening every night. could be delirium ontop on psychotis. she has a rash from her tele leads today. - 05/18 - much better overnight. lost iv access today. - 05/21 - improved in behavioural aspect. more calm. - 05/22 - patient says she has pain everywhere in her body, and is complaining of allergies. Otherwise patient is without any symptoms per nurse, ambulating, tolerating p.o., she knows she needs to go to a psychiatric facility and is patient awaiting Reviewed: H&P Changes from previous H/P or p: No Changes General: Per HPI Objective Vitals Vital Signs Date Time Temp Pulse Resp B/P (MAP) Pulse Ox O2 Delivery O2 Flow Rate FiO2 05/22/24 16:31 97.8 89 18 147/83 (104) 99 97.8 05/22/24 08:00 Room Air* 0 21 Intake/Output Intake and Output 05/22/24 07:00 Intake Total 3640 ml Balance 3640 ml Intake Oral 3640 ml # Voids 15 # Bowel Movements 2 Exam GEN: Healthy appearing, well-developed, NAD. CV: RRR, no m/r/g. LUNGS: CTAB, no w/r/c. ABD: Soft, NT/ND, NBS, no masses or organomegaly. EXT: No clubbing, cyanosis, or edema. skin Warm, well perfused. NEURO: Ambulating with no limitations. No focal deficits. appears anxious. Medications Current Medications Medications Dose Ordered Sig/Priyanka Route Start Time Stop Time Status Last Admin Dose Admin Sodium Chloride 10 ml Q8HR IV 05/12/24 22:00 05/22/24 14:00 10 ML Acetaminophen 650 mg Q6HP PRN PO 05/12/24 20:15 05/22/24 02:22 650 MG Ondansetron HCl 4 mg Q4HP PRN IV 05/12/24 20:15 05/20/24 11:42 4 MG Enoxaparin Sodium 40 mg DAILY SC 05/13/24 10:00 05/22/24 10:37 40 MG Olanzapine 5 mg BID PO 05/13/24 22:00 05/22/24 10:37 5 MG Docusate Calcium 240 mg DAILY PO 05/18/24 10:00 05/22/24 10:36 240 MG Haloperidol Lactate 5 mg Q8HP PRN IM 05/19/24 12:15 05/21/24 00:14 5 MG Lorazepam 2 mg ONCE PRN IV 05/19/24 13:00 Pantoprazole Sodium 40 mg DAILY PO 05/21/24 10:00 05/22/24 10:36 40 MG Artificial Tears 1 drop Q2HP PRN EACHEYE 05/22/24 18:30 Oxymetazoline HCl 2 spr BID EACHNOSTRI 05/22/24 22:00 Laboratory Results Laboratory Tests 05/17/24 13:55 Urinalysis Test 05/13/24 03:50 Urine Color Yellow (Yellow) Urine Clarity Turbid (Clear) H Urine pH 7.0 (5.0-9.0) Urine Specific [place] 1.020 (1.001-1.035) Urine Protein Trace (Negative) H Urine Ketones 2+ (Negative) H Urine Blood Trace /uL (Negative) H Urine Nitrite Negative (Negative) Urine Bilirubin Negative (Negative) Urine Urobilinogen Normal mg/dL (Negative) Urine Leukocyte Esterase 3+ /uL (Negative) Urine RBC 16 /hpf (0 - 4) Urine WBC 178 /hpf (0 - 5) Urine Squamous Epithelial Cells Mod /hpf (<5) Urine Bacteria None seen /hpf (None Seen) Urine Mucus Few (None Seen) Urine Glucose Normal mg/dL (Normal) Labs and/or images reviewed: Labs reviewed by me, Image(s) reviewed by me Assessment/Plan Assessment/Plan update - still waiting on facility. plan to send patient to acute psychiatric facility. psych agress with 5150 hold. social working on placement and transfer. #Psychosis with suicidal attempt - tele psych. opn 5150 hold and on Zyprexa 5 mg b.i.d. #acute encephalopathy resolved #Fall injury #Constipation - on docusate. diet - regular DVT ppx - pt OOB - GI ppx - ana diet cont med-surg admission until placement to psych facility. Plan discussed with: Patient My Orders Orders - LINDA GAFFNEY MD Procedure Category Date Status Time Artificial Tear 15ml PHA 05/22/24 In Process Opthalmic (Tears Na 18:30 Oxymetazoline Hcl PHA 05/22/24 In Process (Afrin) 22:00 Date of Service: May 22, 2024 Billing Provider: LINDA GAFFNEY MD Common Visit Codes: [id number] INP/OBS CARE(MOD) LINDA GAFFNEY MD May 22, 2024 21:26
[2024-05-22] MEDS: OXYMETAZOLINE HCL 0.05 % NASAL SPRAY 15ML EACHNOSTRI SCH (22:00)
[2024-05-23 08:00] VITALS: RESP 16
[2024-05-23 09:00] VITALS: BP 138/74; PULSE 84; RESP 21; TEMP 98.2; O2SAT 99
[2024-05-23 13:00] VITALS: BP 136/82; PULSE 86; RESP 20; TEMP 97.9; O2SAT 97
[2024-05-23 17:00] VITALS: BP 124/68; PULSE 91; RESP 19; TEMP 98.1; O2SAT 96
[2024-05-23 21:00] VITALS: BP 122/69; PULSE 83; RESP 20; TEMP 98; O2SAT 96
[2024-05-23] MEDS: MELATONIN 5 MG TAB PO ONE (21:22)
--- NOTE | 2024-05-23 22:37 | DVHPN2 ---
Subjective This is a 63 year female who was seen for evaluation via telepsychiatry. Patient is a poor historian and seems to be minimizing her recent behavior. She denies feeling depressed. She reported good sleep and appetite. She denied feeling hopeless or worthless. She denied any auditory visual hallucination. She presents paranoid. As per nursing staff patient has been indulging in aggressive behavior towards family and family is concerned about her safety and safety of other family members. update -05/17 - hostile and abusive overnight which apparently happening every night. could be delirium ontop on psychotis. she has a rash from her tele leads today. - 05/18 - much better overnight. lost iv access today. - 05/21 - improved in behavioural aspect. more calm. - 05/22 - patient says she has pain everywhere in her body, and is complaining of allergies. Otherwise patient is without any symptoms per nurse, ambulating, tolerating p.o., she knows she needs to go to a psychiatric facility and is patient awaiting -05/23 - Patient is still violent at night times. She became belligerent last night and fell off her bed . not being able to sleep.and wants sleep aid. Reviewed: H&P Changes from previous H/P or p: No Changes General: Per HPI Objective Vitals Vital Signs Date Time Temp Pulse Resp B/P (MAP) Pulse Ox O2 Delivery O2 Flow Rate FiO2 05/23/24 20:10 Room Air* 0 21 05/23/24 17:00 98.1 91 19 124/68 (86) 96 98.1 Intake/Output Intake and Output 05/23/24 07:00 Intake Total 2720 ml Output Total 1100 ml Balance 1620 ml Intake Oral 2720 ml Output Urine Total 1100 ml # Voids 7 # Bowel Movements 3 Exam GEN: Healthy appearing, well-developed, NAD. CV: RRR, no m/r/g. LUNGS: CTAB, no w/r/c. ABD: Soft, NT/ND, NBS, no masses or organomegaly. EXT: No clubbing, cyanosis, or edema. skin Warm, well perfused. NEURO: Ambulating with no limitations. No focal deficits. appears anxious. Medications Current Medications Medications Dose Ordered Sig/Rpiyanka Route Start Time Stop Time Status Last Admin Dose Admin Sodium Chloride 10 ml Q8HR IV 05/12/24 22:00 05/23/24 21:33 10 ML Acetaminophen 650 mg Q6HP PRN PO 05/12/24 20:15 05/23/24 21:28 650 MG Ondansetron HCl 4 mg Q4HP PRN IV 05/12/24 20:15 05/20/24 11:42 4 MG Enoxaparin Sodium 40 mg DAILY SC 05/13/24 10:00 05/23/24 09:36 40 MG Olanzapine 5 mg BID PO 05/13/24 22:00 05/23/24 21:23 5 MG Docusate Calcium 240 mg DAILY PO 05/18/24 10:00 05/23/24 09:34 240 MG Haloperidol Lactate 5 mg Q8HP PRN IM 05/19/24 12:15 05/21/24 00:14 5 MG Lorazepam 2 mg ONCE PRN IV 05/19/24 13:00 Pantoprazole Sodium 40 mg DAILY PO 05/21/24 10:00 05/23/24 09:34 40 MG Artificial Tears 1 drop Q2HP PRN EACHEYE 05/22/24 18:30 Oxymetazoline HCl 2 spr BID EACHNOSTRI 05/22/24 22:00 05/23/24 21:29 2 SPR Trazodone HCl 50 mg HSPRN PO 05/23/24 22:00 Laboratory Results Laboratory Tests 05/17/24 13:55 Urinalysis Test 05/13/24 03:50 Urine Color Yellow (Yellow) Urine Clarity Turbid (Clear) H Urine pH 7.0 (5.0-9.0) Urine Specific [place] 1.020 (1.001-1.035) Urine Protein Trace (Negative) H Urine Ketones 2+ (Negative) H Urine Blood Trace /uL (Negative) H Urine Nitrite Negative (Negative) Urine Bilirubin Negative (Negative) Urine Urobilinogen Normal mg/dL (Negative) Urine Leukocyte Esterase 3+ /uL (Negative) Urine RBC 16 /hpf (0 - 4) Urine WBC 178 /hpf (0 - 5) Urine Squamous Epithelial Cells Mod /hpf (<5) Urine Bacteria None seen /hpf (None Seen) Urine Mucus Few (None Seen) Urine Glucose Normal mg/dL (Normal) Labs and/or images reviewed: Labs reviewed by me, Image(s) reviewed by me Assessment/Plan Assessment/Plan update - still waiting on facility. plan to send patient to acute psychiatric facility. psych agress with 5150 hold. social working on placement and transfer. -05/23 - Patient is still violent at night times. She became belligerent last night and fell off her bed . not being able to sleep.and wants sleep aid. #Psychosis with suicidal attempt - tele psych. opn 5150 hold and on Zyprexa 5 mg b.i.d. #acute encephalopathy resolved #Fall injury #Constipation - on docusate. diet - regular DVT ppx - pt OOB - GI ppx - ana diet cont med-surg admission until placement to psych facility. Plan discussed with: Other My Orders Orders - LINDA GAFFNEY MD Procedure Category Date Status Time Trazodone Hcl PHA 05/23/24 In Process (Desyrel) 22:00 Date of Service: May 23, 2024 Billing Provider: LINDA GAFFNEY MD Common Visit Codes: [id number] INP/OBS CARE(MOD) LINDA GAFFNEY MD May 23, 2024 22:37
[2024-05-23] MEDS: traZODone HCL 50 MG TAB PO SCH (23:14)
--- NOTE | 2024-05-23 23:14 | DVHPN2 ---
Progress Note - Dictate Date Seen: May 23, 2024 Medical Necessity Reason Pt with a Central, PICC or Fol: No Subjective Ms. Nunez is a 63 years old right-handed female with a history of dyslipidemia, gout, arthritis, the patient came to the hospital with a chief company of psychosis. I have seen and examined the patient, I have talked to her nurse and sitter, she is alert, oriented x3. She fell off bed last night, she reports pain in the right knee She wants to walk on the floor UDS, 05/13/2024: Cannabinoids Urinalysis, 05/13/2024: WBC: 178, urine leukocyte esterase: 3+ CBC, 05/13/2024: Unremarkable BMP, 05/13/2024: Unremarkable TBI/AST/ALT/AP, 05/13/2024: // Vitamin B12, 04/2024: Folic acid, 05/12/24: TSH, 05/12/2024: 1.07 CT head, 05/12/2024: No acute intracranial abnormality CT C-spine, 05/14/2024: 1. No evidence of acute cervical spine fracture or traumatic malalignment. 2. Multilevel cervical spondylosis. vital signs Vital Sign Date Time Temp Pulse Resp B/P (MAP) Pulse Ox O2 Delivery O2 Flow Rate FiO2 05/23/24 20:10 Room Air* 0 21 05/23/24 17:00 98.1 91 19 124/68 (86) 96 98.1 Total Intake and Output 05/22/24 05/22/24 05/23/24 15:00 23:00 07:00 Intake Total 720 ml 1200 ml 800 ml Output Total 1100 ml Balance 720 ml 100 ml 800 ml medications Current Medications Medications Dose Ordered Sig/Priyanka Route Start Time Stop Time Status Last Admin Dose Admin Sodium Chloride 10 ml Q8HR IV 05/12/24 22:00 05/23/24 21:33 10 ML Acetaminophen 650 mg Q6HP PRN PO 05/12/24 20:15 05/23/24 21:28 650 MG Ondansetron HCl 4 mg Q4HP PRN IV 05/12/24 20:15 05/20/24 11:42 4 MG Enoxaparin Sodium 40 mg DAILY SC 05/13/24 10:00 05/23/24 09:36 40 MG Olanzapine 5 mg BID PO 05/13/24 22:00 05/23/24 21:23 5 MG Docusate Calcium 240 mg DAILY PO 05/18/24 10:00 05/23/24 09:34 240 MG Haloperidol Lactate 5 mg Q8HP PRN IM 05/19/24 12:15 05/21/24 00:14 5 MG Lorazepam 2 mg ONCE PRN IV 05/19/24 13:00 Pantoprazole Sodium 40 mg DAILY PO 05/21/24 10:00 05/23/24 09:34 40 MG Artificial Tears 1 drop Q2HP PRN EACHEYE 05/22/24 18:30 Oxymetazoline HCl 2 spr BID EACHNOSTRI 05/22/24 22:00 05/23/24 21:29 2 SPR Trazodone HCl 50 mg HSPRN PO 05/23/24 22:00 objective General: the patient is well developed and nourished. No acute distress. MUSCULOSKELETAL EXAM: Tenderness to palpation in the neck, shoulders, and whole back MENTAL STATUS: Awake and alert. Oriented to person, place, time and general circumstances. SPEECH, LANGUAGE, HIGHER CORTICAL FUNCTION: no aphasia or dysathria. CRANIAL NERVES: Pupils are equal, round and reactive. EOMs full and conjugate. No nystagmus. Facial sensation intact in all three divisions bilaterally. Mandibular strength intact. Facial muscles symmetrical and strength intact. SENSATION: Sensation to touch and pinprick is normal. MOTOR: Normal tone in the upper and lower extremity. Normal muscle bulk. No fasciculations. No abnormal movements or posturing. Muscle strength of the major groups in the extremities is 5/5. REFLEXES: Deep tendon reflexes normal and symmetrical. No pathological reflexes. CEREBELLAR/COORDINATION: Finger to nose and heel to araujo are normal bilaterally. GAIT/STATION: Within normal limits laboratory and microbiology Laboratory Tests 05/17/24 13:55 Test 05/17/24 13:55 Range/Units Serum Glucose 101 74-106 mg/dL Problem List ? Psychosis with suicidal attempt Fall injury Constipation Assessment/Plan Monitoring Supportive treatment Telemetry Good hydration Zyprexa 5 mg b.i.d. Docusate 240 mg daily 5150 hold Okay to walk with our staff on the floor This medical document was created using an electronic medical record system with [employer] dictation system. Although this document has been carefully reviewed, there may still be some phonetic and typographical errors. These areas are purely typographical due to imperfections of the software programs, and do not reflect any compromise in the patient's medical care. Prognosis poor Dietary Evaluation Review Comments: Continue current plan of care Expected Outcomes/Goals: F/U in 5-7 days Plan discussed with: Patient, Other DEANN DICKENS MD May 23, 2024 23:14
[2024-05-24 08:00] VITALS: RESP 17
[2024-05-24 09:00] VITALS: BP 139/71; PULSE 99; RESP 19; TEMP 97.9; O2SAT 98
[2024-05-24 12:30] VITALS: BP 114/56; PULSE 86; RESP 18; TEMP 98.4; O2SAT 98
[2024-05-24 17:00] VITALS: BP 138/69; PULSE 92; RESP 18; TEMP 98.1; O2SAT 97
[2024-05-24 21:00] VITALS: BP 131/72; PULSE 78; RESP 18; O2SAT 99
--- NOTE | 2024-05-24 21:13 | DVHPN2 ---
Subjective This is a 63 year female who was seen for evaluation via telepsychiatry. Patient is a poor historian and seems to be minimizing her recent behavior. She denies feeling depressed. She reported good sleep and appetite. She denied feeling hopeless or worthless. She denied any auditory visual hallucination. She presents paranoid. As per nursing staff patient has been indulging in aggressive behavior towards family and family is concerned about her safety and safety of other family members. update -05/17 - hostile and abusive overnight which apparently happening every night. could be delirium ontop on psychotis. she has a rash from her tele leads today. - 05/18 - much better overnight. lost iv access today. - 05/21 - improved in behavioural aspect. more calm. - 05/22 - patient says she has pain everywhere in her body, and is complaining of allergies. Otherwise patient is without any symptoms per nurse, ambulating, tolerating p.o., she knows she needs to go to a psychiatric facility and is patient awaiting -05/23 - Patient is still violent at night times. She became belligerent last night and fell off her bed . not being able to sleep.and wants sleep aid. - 05/24 no changes. continues to be violent. will need repeat psych tele eval. Reviewed: H&P Changes from previous H/P or p: No Changes General: Per HPI Objective Vitals Vital Signs Date Time Temp Pulse Resp B/P (MAP) Pulse Ox O2 Delivery O2 Flow Rate FiO2 05/24/24 20:00 Room Air* 0 21 05/24/24 17:00 98.1 92 18 138/69 (92) 97 98.1 Intake/Output Intake and Output 05/24/24 07:00 Intake Total 3320 ml Output Total 1800 ml Balance 1520 ml Intake Oral 3320 ml Output Urine Total 1800 ml # Voids 10 # Bowel Movements 6 Exam GEN: Healthy appearing, well-developed, NAD. CV: RRR, no m/r/g. LUNGS: CTAB, no w/r/c. ABD: Soft, NT/ND, NBS, no masses or organomegaly. EXT: No clubbing, cyanosis, or edema. skin Warm, well perfused. NEURO: Ambulating with no limitations. No focal deficits. appears anxious. Medications Current Medications Medications Dose Ordered Sig/Priyanka Route Start Time Stop Time Status Last Admin Dose Admin Sodium Chloride 10 ml Q8HR IV 05/12/24 22:00 05/24/24 14:00 10 ML Acetaminophen 650 mg Q6HP PRN PO 05/12/24 20:15 05/24/24 12:22 650 MG Ondansetron HCl 4 mg Q4HP PRN IV 05/12/24 20:15 05/20/24 11:42 4 MG Olanzapine 5 mg BID PO 05/13/24 22:00 05/24/24 09:46 5 MG Docusate Calcium 240 mg DAILY PO 05/18/24 10:00 05/24/24 09:45 240 MG Haloperidol Lactate 5 mg Q8HP PRN IM 05/19/24 12:15 05/24/24 04:06 5 MG Lorazepam 2 mg ONCE PRN IV 05/19/24 13:00 Pantoprazole Sodium 40 mg DAILY PO 05/21/24 10:00 05/24/24 09:46 40 MG Artificial Tears 1 drop Q2HP PRN EACHEYE 05/22/24 18:30 Oxymetazoline HCl 2 spr BID EACHNOSTRI 05/22/24 22:00 05/24/24 09:44 2 SPR Trazodone HCl 50 mg HSPRN PO 05/23/24 22:00 05/23/24 23:14 50 MG Laboratory Results Laboratory Tests 05/17/24 13:55 Urinalysis Test 05/13/24 03:50 Urine Color Yellow (Yellow) Urine Clarity Turbid (Clear) H Urine pH 7.0 (5.0-9.0) Urine Specific [place] 1.020 (1.001-1.035) Urine Protein Trace (Negative) H Urine Ketones 2+ (Negative) H Urine Blood Trace /uL (Negative) H Urine Nitrite Negative (Negative) Urine Bilirubin Negative (Negative) Urine Urobilinogen Normal mg/dL (Negative) Urine Leukocyte Esterase 3+ /uL (Negative) Urine RBC 16 /hpf (0 - 4) Urine WBC 178 /hpf (0 - 5) Urine Squamous Epithelial Cells Mod /hpf (<5) Urine Bacteria None seen /hpf (None Seen) Urine Mucus Few (None Seen) Urine Glucose Normal mg/dL (Normal) Labs and/or images reviewed: Labs reviewed by me, Image(s) reviewed by me Assessment/Plan Assessment/Plan update - still waiting on facility. plan to send patient to acute psychiatric facility. psych agress with 5150 hold. social working on placement and transfer. - 05/24 no changes. continues to be violent. will need repeat psych tele eval. #Psychosis with suicidal attempt - tele psych. opn 5150 hold and on Zyprexa 5 mg b.i.d. #acute encephalopathy resolved #Fall injury #Constipation - on docusate. diet - regular DVT ppx - pt OOB - GI ppx - ana diet cont med-surg admission until placement to psych facility. Plan discussed with: Other Date of Service: May 24, 2024 Billing Provider: LINDA GAFFNEY MD Common Visit Codes: [id number] INP/OBS CARE(MOD) LINDA GAFFNEY MD May 24, 2024 21:13
[2024-05-24] MEDS: ASPirin 325 MG TAB PO ONE (22:57)
[2024-05-25] VITALS (7 sets, daily range): BP systolic 119–145; BP diastolic 63–78; PULSE 76–106; RESP 16–18; TEMP 97.7–98.2; O2SAT 91–100
[2024-05-25] MEDS: ONDANSETRON ODT 4 MG TAB PO ONE (06:22)
[2024-05-25 06:47] LABS: Urine Bacteria None Seen /hpf (None Seen)
[2024-05-25 07:24] LABS: Urine Blood Negative /uL (Negative); Urine Clarity Clear (Clear); Urine Color Light-Yellow (Yellow); Urine Protein, UAD Negative (Negative); Urine Specific Gravity 1.015 (1.001-1.035); Urine Urobilinogen Normal (Negative); Urine WBC 1 /hpf (0 - 5); Urine pH 6.5 (5.0-9.0)
--- NOTE | 2024-05-25 18:18 | DVHINCON2 ---
Date of service: May 25, [address] Hiren Fuller Reason for Consultation Medication management and disposition. History of Present Illness Chief complaint: "Because I fell off a roof top". Interval history: This is a 63 year female who was seen for follow up via tele psychiatry. Patient is a poor historian and seems to be minimizing her recent behavior. She denies feeling depressed. She reported good sleep and appetite. She denied feeling hopeless or worthless. She denied any auditory visual hallucination. She presents paranoid. As per nursing staff patient has getting agitated at nighttimes and also at times experiencing auditory hallucination. Past Medical History As per history and physical. Past Surgical History As per history and physical. Allergies: Coded Allergies: Penicillin V (Verified Allergy, Unknown, 05/12/24) Home Meds Active Scripts Phenazopyridine HCl (Phenazopyridine Hydrochol) 200 Mg Tab, 200 MG PO TID PRN for 2 Days, #6 TAB 0 Refills Prov:CAITLIN BERTRAND 10/06/23 Review of Systems Review of systems is negative except HPI. Vital Signs Vital Signs Date Time Temp Pulse Resp B/P (MAP) Pulse Ox O2 Delivery O2 Flow Rate FiO2 05/25/24 16:45 98.1 88 17 119/78 (92) 91 98.1 05/25/24 08:00 Room Air* 0 21 Physical Exam Mental status examination: This is a 63 year female who appears older than his stated age. Her grooming is marginal. Her eye contact is improved. Her speech is soft and lacking spontaneity. She denied any suicidal or homicidal ideation. She denied any auditory or visual hallucination. Her thought processes is disorganized and paranoid. He is oriented to person, place and year. Her attention and concentration is impaired. Her memory and language is impaired. Her judgment and insight is limited. Her impulse control is limited. Her fund of knowledge is intact. Labs/Diagnostic Data Labs Test 05/25/24 06:40 05/24/24 23:13 05/17/24 13:55 05/13/24 03:50 Range/Units Urine Color Light-yellow Yellow Urine Clarity Clear Clear Urine pH 6.5 5.0-9.0 Urine Specific [place] 1.015 1.001-1.035 Urine Protein Negative Negative Urine Ketones Negative Negative Urine Blood Negative Negative /uL Urine Nitrite Negative Negative Urine Bilirubin Negative Negative Urine Urobilinogen Normal Negative mg/dL Urine Leukocyte Esterase Negative Negative /uL Urine RBC 1 0 - 4 /hpf Urine WBC 1 0 - 5 /hpf Urine Squamous Epithelial Cells Few <5 /hpf Urine Bacteria None seen None Seen /hpf Urine Glucose Normal Normal mg/dL Troponin I High Sensitivity < 3 L </=34 ng/L White Blood Count 10.2 4.4-10.8 10^3/uL Red Blood Count 4.36 4.0-5.20 10^6/uL Hemoglobin 13.5 12.2-16.2 g/dL Hematocrit 39.8 36.0-46.0 % Mean Corpuscular Volume 91.1 80.0-100.0 fL Mean Corpuscular Hemoglobin 30.9 28.0-32.0 pg Mean Corpuscular Hemoglobin Concent 33.9 32.0-36.0 g/dL Red Cell Distribution Width 12.9 11.8-14.3 % Platelet Count 414 140-450 10^3/uL Mean Platelet Volume 7.0 6.9-10.8 fL Neutrophils (%) (Auto) 53.4 37.0-80.0 % Lymphocytes (%) (Auto) 35.2 10.0-50.0 % Monocytes (%) (Auto) 9.1 0.0-12.0 % Eosinophils (%) (Auto) 1.8 0.0-7.0 % Basophils (%) (Auto) 0.5 0.0-2.0 % Neutrophils # (Auto) 5.5 1.6-8.6 10 ^3/uL Lymphocytes # (Auto) 3.6 0.4-5.4 10 ^3/uL Monocytes # (Auto) 0.9 0-1.3 10 ^3/uL Eosinophils # (Auto) 0.2 0-0.8 10 ^3/uL Basophils # (Auto) 0.1 0-0.2 10 ^3/uL Nucleated Red Blood Cells 0.0 % Sodium Level 140 136-145 mmol/L Potassium Level 4.1 3.5-5.1 mmol/L Chloride Level 105 98-107 mmol/L Carbon Dioxide Level 28 20-31 mmol/L Anion Gap 7 5-15 Blood Urea Nitrogen 13 9-23 mg/dL Creatinine 0.76 0.550-1.02 mg/dL Glomerular Filtration Rate Calc 89 >90 mL/min BUN/Creatinine Ratio 17.1 10.0-20.0 Serum Glucose 101 74-106 mg/dL Calcium Level 11.3 H 8.7-10.4 mg/dL Magnesium Level 2.1 1.6-2.6 mg/dL Total Bilirubin 0.5 0.2-1.0 mg/dL Aspartate Amino Transferase (AST) 38 13-40 U/L Alanine Aminotransferase (ALT) 47 H 7-40 U/L Alkaline Phosphatase 77 46-116 U/L Total Protein 7.5 5.7-8.2 g/dL Albumin 4.7 3.2-4.8 g/dL Urine Mucus Few None Seen Urine Opiates Screen Neg NEGATIVE Urine Fentanyl Screen Neg NEGATIVE Urine Barbiturates Screen Neg NEGATIVE Urine Phencyclidine Screen Neg NEGATIVE Urine Amphetamines Screen Neg NEGATIVE Urine Benzodiazepines Screen Neg NEGATIVE Urine Cocaine Screen Neg NEGATIVE Urine Cannabinoids Screen Pos NEGATIVE Test 05/12/24 16:11 Range/Units Vitamin B12 Level 436 211-911 pg/mL Folic Acid 30.04 >5.38 ng/mL Thyroid Stimulating Hormone (TSH) 1.07 0.55-4.78 uIU/mL Free Thyroxine (T4) Calculated 1.41 0.89-1.76 ng/dL Assessment Patient with a diagnosis of psychotic disorder not otherwise specified and mood disorder not otherwise specified. As per nursing staff her family is concerned. Plan/Recommendation I will recommend 5150 hold for grave disability and transferred to inpatient psychiatric level of care. I will consolidate her Zyprexa to 10 mg p.o. q.h.s.. Care was coordinated with the patient and her RN. Plan discussed with: Patient LEE DALLAS MD May 25, 2024 18:18
[2024-05-25] MEDS: OLANZapine 5 MG TAB PO SCH (21:03)
--- NOTE | 2024-05-25 22:27 | DVHPN2 ---
Subjective This is a 63 year female who was seen for evaluation via telepsychiatry. Patient is a poor historian and seems to be minimizing her recent behavior. She denies feeling depressed. She reported good sleep and appetite. She denied feeling hopeless or worthless. She denied any auditory visual hallucination. She presents paranoid. As per nursing staff patient has been indulging in aggressive behavior towards family and family is concerned about her safety and safety of other family members. update -05/17 - hostile and abusive overnight which apparently happening every night. could be delirium ontop on psychotis. she has a rash from her tele leads today. - 05/18 - much better overnight. lost iv access today. - 05/21 - improved in behavioural aspect. more calm. - 05/22 - patient says she has pain everywhere in her body, and is complaining of allergies. Otherwise patient is without any symptoms per nurse, ambulating, tolerating p.o., she knows she needs to go to a psychiatric facility and is patient awaiting -05/23 - Patient is still violent at night times. She became belligerent last night and fell off her bed . not being able to sleep.and wants sleep aid. - 05/24 no changes. continues to be violent. will need repeat psych tele eval. - 05/25 tele psych changed Zyprexa to 10 mg q.h.s.. Less than patient was again agitated Reviewed: H&P Changes from previous H/P or p: No Changes General: Per HPI Objective Vitals Vital Signs Date Time Temp Pulse Resp B/P (MAP) Pulse Ox O2 Delivery O2 Flow Rate FiO2 05/25/24 21:00 98.2 78 17 127/63 (84) 98 98.2 05/25/24 20:00 Room Air* 0 21 Intake/Output Intake and Output 05/25/24 07:00 Intake Total 2293 ml Balance 2293 ml Intake Oral 2293 ml # Voids 18 # Bowel Movements 3 Exam GEN: Healthy appearing, well-developed, NAD. CV: RRR, no m/r/g. LUNGS: CTAB, no w/r/c. ABD: Soft, NT/ND, NBS, no masses or organomegaly. EXT: No clubbing, cyanosis, or edema. skin Warm, well perfused. NEURO: Ambulating with no limitations. No focal deficits. appears anxious. Medications Current Medications Medications Dose Ordered Sig/Priyanka Route Start Time Stop Time Status Last Admin Dose Admin Sodium Chloride 10 ml Q8HR IV 05/12/24 22:00 05/25/24 14:29 10 ML Acetaminophen 650 mg Q6HP PRN PO 05/12/24 20:15 05/25/24 21:16 650 MG Ondansetron HCl 4 mg Q4HP PRN IV 05/12/24 20:15 05/20/24 11:42 4 MG Docusate Calcium 240 mg DAILY PO 05/18/24 10:00 05/25/24 10:27 240 MG Haloperidol Lactate 5 mg Q8HP PRN IM 05/19/24 12:15 05/24/24 04:06 5 MG Lorazepam 2 mg ONCE PRN IV 05/19/24 13:00 Pantoprazole Sodium 40 mg DAILY PO 05/21/24 10:00 05/25/24 10:27 40 MG Artificial Tears 1 drop Q2HP PRN EACHEYE 05/22/24 18:30 Oxymetazoline HCl 2 spr BID EACHNOSTRI 05/22/24 22:00 05/25/24 21:02 2 SPR Trazodone HCl 50 mg HSPRN PO 05/23/24 22:00 05/25/24 21:03 50 MG Olanzapine 10 mg HS PO 05/25/24 22:00 05/25/24 21:03 10 MG Laboratory Results Laboratory Tests 05/17/24 13:55 Urinalysis Test 05/13/24 03:50 05/25/24 06:40 Urine Mucus Few (None Seen) Urine Color Light-yellow (Yellow) Urine Clarity Clear (Clear) Urine pH 6.5 (5.0-9.0) Urine Specific [place] 1.015 (1.001-1.035) Urine Protein Negative (Negative) Urine Ketones Negative (Negative) Urine Blood Negative /uL (Negative) Urine Nitrite Negative (Negative) Urine Bilirubin Negative (Negative) Urine Urobilinogen Normal mg/dL (Negative) Urine Leukocyte Esterase Negative /uL (Negative) Urine RBC 1 /hpf (0 - 4) Urine WBC 1 /hpf (0 - 5) Urine Squamous Epithelial Cells Few /hpf (<5) Urine Bacteria None seen /hpf (None Seen) Urine Glucose Normal mg/dL (Normal) Labs and/or images reviewed: Labs reviewed by me, Image(s) reviewed by me Assessment/Plan Assessment/Plan update - still waiting on facility. plan to send patient to acute psychiatric facility. psych agress with 5150 hold. social working on placement and transfer. - 05/25 tele psych changed Zyprexa to 10 mg q.h.s.. Less than patient was again agitated #Psychosis with suicidal attempt - tele psych. opn 5150 hold and on Zyprexa 10 qhs #acute encephalopathy resolved #Fall injury #Constipation - on docusate. diet - regular DVT ppx - pt OOB - GI ppx - ana diet cont med-surg admission until placement to psych facility. Plan discussed with: Patient Date of Service: May 25, 2024 Billing Provider: LINDA GAFFNEY MD Common Visit Codes: [id number] INP/OBS CARE(MOD) LINDA GAFFNEY MD May 25, 2024 22:27
[2024-05-26 05:00] VITALS: BP 126/60; PULSE 71; RESP 20; TEMP 97.8; O2SAT 96
[2024-05-26 09:00] VITALS: BP 149/80; PULSE 98; RESP 20; TEMP 97.8; O2SAT 100
[2024-05-26] MEDS: ARTIFICIAL TEARS 15ml EACHEYE PRN (14:45)
[2024-05-26 17:02] VITALS: BP 127/69; PULSE 93; RESP 20; TEMP 97.9; O2SAT 95
[2024-05-26 20:00] VITALS: PULSE 90; RESP 20
--- NOTE | 2024-05-26 20:46 | DVHPN2 ---
Subjective This is a 63 year female who was seen for evaluation via telepsychiatry. Patient is a poor historian and seems to be minimizing her recent behavior. She denies feeling depressed. She reported good sleep and appetite. She denied feeling hopeless or worthless. She denied any auditory visual hallucination. She presents paranoid. As per nursing staff patient has been indulging in aggressive behavior towards family and family is concerned about her safety and safety of other family members. update -05/17 - hostile and abusive overnight which apparently happening every night. could be delirium ontop on psychotis. she has a rash from her tele leads today. - 05/18 - much better overnight. lost iv access today. - 05/21 - improved in behavioural aspect. more calm. - 05/22 - patient says she has pain everywhere in her body, and is complaining of allergies. Otherwise patient is without any symptoms per nurse, ambulating, tolerating p.o., she knows she needs to go to a psychiatric facility and is patient awaiting -05/23 - Patient is still violent at night times. She became belligerent last night and fell off her bed . not being able to sleep.and wants sleep aid. - 05/24 no changes. continues to be violent. will need repeat psych tele eval. - 05/25 tele psych changed Zyprexa to 10 mg q.h.s.. Less than patient was again agitated - 05/26 - no changes today continues to pend for psych placement Reviewed: H&P Changes from previous H/P or p: No Changes General: Per HPI Objective Vitals Vital Signs Date Time Temp Pulse Resp B/P (MAP) Pulse Ox O2 Delivery O2 Flow Rate FiO2 05/26/24 17:02 97.9 93 20 127/69 (88) 95 97.9 05/26/24 08:00 Room Air* 0 21 Intake/Output Intake and Output 05/26/24 07:00 Intake Total 1880 ml Balance 1880 ml Intake Oral 1880 ml # Voids 15 # Bowel Movements 2 Exam GEN: Healthy appearing, well-developed, NAD. CV: RRR, no m/r/g. LUNGS: CTAB, no w/r/c. ABD: Soft, NT/ND, NBS, no masses or organomegaly. EXT: No clubbing, cyanosis, or edema. skin Warm, well perfused. NEURO: Ambulating with no limitations. No focal deficits. appears anxious. Medications Current Medications Medications Dose Ordered Sig/Priyanka Route Start Time Stop Time Status Last Admin Dose Admin Sodium Chloride 10 ml Q8HR IV 05/12/24 22:00 05/26/24 13:10 10 ML Acetaminophen 650 mg Q6HP PRN PO 05/12/24 20:15 05/26/24 15:51 650 MG Ondansetron HCl 4 mg Q4HP PRN IV 05/12/24 20:15 05/20/24 11:42 4 MG Docusate Calcium 240 mg DAILY PO 05/18/24 10:00 05/26/24 08:52 240 MG Haloperidol Lactate 5 mg Q8HP PRN IM 05/19/24 12:15 05/24/24 04:06 5 MG Lorazepam 2 mg ONCE PRN IV 05/19/24 13:00 Pantoprazole Sodium 40 mg DAILY PO 05/21/24 10:00 05/26/24 10:00 40 MG Artificial Tears 1 drop Q2HP PRN EACHEYE 05/22/24 18:30 05/26/24 14:45 1 DROP Oxymetazoline HCl 2 spr BID EACHNOSTRI 05/22/24 22:00 05/26/24 08:54 2 SPR Trazodone HCl 50 mg HSPRN PO 05/23/24 22:00 05/25/24 21:03 50 MG Olanzapine 10 mg HS PO 05/25/24 22:00 05/25/24 21:03 10 MG Laboratory Results Laboratory Tests 05/17/24 13:55 Urinalysis Test 05/13/24 03:50 05/25/24 06:40 Urine Mucus Few (None Seen) Urine Color Light-yellow (Yellow) Urine Clarity Clear (Clear) Urine pH 6.5 (5.0-9.0) Urine Specific [place] 1.015 (1.001-1.035) Urine Protein Negative (Negative) Urine Ketones Negative (Negative) Urine Blood Negative /uL (Negative) Urine Nitrite Negative (Negative) Urine Bilirubin Negative (Negative) Urine Urobilinogen Normal mg/dL (Negative) Urine Leukocyte Esterase Negative /uL (Negative) Urine RBC 1 /hpf (0 - 4) Urine WBC 1 /hpf (0 - 5) Urine Squamous Epithelial Cells Few /hpf (<5) Urine Bacteria None seen /hpf (None Seen) Urine Glucose Normal mg/dL (Normal) Labs and/or images reviewed: Labs reviewed by me, Image(s) reviewed by me Assessment/Plan Assessment/Plan update - still waiting on facility. plan to send patient to acute psychiatric facility. psych agress with 5150 hold. social working on placement and transfer. - - 05/26 - no changes today continues to pend for psych placement #Psychosis with suicidal attempt - tele psych. opn 5150 hold and on Zyprexa 10 qhs #acute encephalopathy resolved #Fall injury #Constipation - on docusate. diet - regular DVT ppx - pt OOB - GI ppx - ana diet cont med-surg admission until placement to psych facility. Plan discussed with: Patient Date of Service: May 26, 2024 Billing Provider: LINDA GAFFNEY MD Common Visit Codes: [id number] INP/OBS CARE(MOD) LINDA GAFFNEY MD May 26, 2024 20:46
[2024-05-26 21:00] VITALS: BP 138/75; PULSE 90; RESP 20; TEMP 97.8; O2SAT 98
--- NOTE | 2024-05-27 08:57 | ECG ---
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
[2024-05-27 09:00] VITALS: BP 147/83; PULSE 81; RESP 17; TEMP 98.3; O2SAT 97
--- NOTE | 2024-05-27 09:04 | ECG ---
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
--- NOTE | 2024-05-27 09:26 | ECG ---
[facility] Test Date: 2024-05-23 Test Time: 14:45:27 Pat Name: GIGI BLAIR Department: Room: 0234 A Gender: F Licensed Embalmer: CALLUM : 1960 Requested By: LINDA BARRY Order Number: [id number] Reading MD: Cecil Pacheco Measurements Intervals [place] Rate: 108 P: 27 GA: 173 QRS: -53 QRSD: 87 T: 29 QT: 340 QTc: 456 Interpretive Statements Sinus tachycardia Left anterior fascicular block Borderline low voltage, extremity leads Abnormal R-wave progression, late transition Electronically Signed On 05-28-2024 17:24:11 PST by Cecil Pacheco Please click the below link to view image of tracing.
[2024-05-27 13:00] VITALS: BP 142/83; PULSE 107; RESP 16; TEMP 98.1; O2SAT 96
[2024-05-27 20:00] VITALS: PULSE 83; RESP 18
--- NOTE | 2024-05-27 20:31 | DVHPN2 ---
Subjective This is a 63 year female who was seen for evaluation via telepsychiatry. Patient is a poor historian and seems to be minimizing her recent behavior. She denies feeling depressed. She reported good sleep and appetite. She denied feeling hopeless or worthless. She denied any auditory visual hallucination. She presents paranoid. As per nursing staff patient has been indulging in aggressive behavior towards family and family is concerned about her safety and safety of other family members. update -05/17 - hostile and abusive overnight which apparently happening every night. could be delirium ontop on psychotis. she has a rash from her tele leads today. - 05/18 - much better overnight. lost iv access today. - 05/21 - improved in behavioural aspect. more calm. - 05/22 - patient says she has pain everywhere in her body, and is complaining of allergies. Otherwise patient is without any symptoms per nurse, ambulating, tolerating p.o., she knows she needs to go to a psychiatric facility and is patient awaiting -05/23 - Patient is still violent at night times. She became belligerent last night and fell off her bed . not being able to sleep.and wants sleep aid. - 05/24 no changes. continues to be violent. will need repeat psych tele eval. - 05/25 tele psych changed Zyprexa to 10 mg q.h.s.. Less than patient was again agitated - 05/27 - no changes today continues to pend for psych placement Reviewed: H&P Changes from previous H/P or p: No Changes General: Per HPI Objective Vitals Vital Signs Date Time Temp Pulse Resp B/P (MAP) Pulse Ox O2 Delivery O2 Flow Rate FiO2 05/27/24 13:00 98.1 107 16 142/83 (102) 96 98.1 05/27/24 08:00 Room Air* 0 21 Intake/Output Intake and Output 05/27/24 07:00 Intake Total 2234 ml Output Total 800 ml Balance 1434 ml Intake Oral 2234 ml Output Urine Total 800 ml # Voids 8 Exam GEN: Healthy appearing, well-developed, NAD. CV: RRR, no m/r/g. LUNGS: CTAB, no w/r/c. ABD: Soft, NT/ND, NBS, no masses or organomegaly. EXT: No clubbing, cyanosis, or edema. skin Warm, well perfused. NEURO: Ambulating with no limitations. No focal deficits. appears anxious. Medications Current Medications Medications Dose Ordered Sig/Priyanka Route Start Time Stop Time Status Last Admin Dose Admin Sodium Chloride 10 ml Q8HR IV 05/12/24 22:00 05/26/24 13:10 10 ML Acetaminophen 650 mg Q6HP PRN PO 05/12/24 20:15 05/27/24 16:16 650 MG Ondansetron HCl 4 mg Q4HP PRN IV 05/12/24 20:15 05/20/24 11:42 4 MG Docusate Calcium 240 mg DAILY PO 05/18/24 10:00 05/27/24 09:09 240 MG Haloperidol Lactate 5 mg Q8HP PRN IM 05/19/24 12:15 05/24/24 04:06 5 MG Lorazepam 2 mg ONCE PRN IV 05/19/24 13:00 Pantoprazole Sodium 40 mg DAILY PO 05/21/24 10:00 05/27/24 09:10 40 MG Artificial Tears 1 drop Q2HP PRN EACHEYE 05/22/24 18:30 05/27/24 16:17 1 DROP Oxymetazoline HCl 2 spr BID EACHNOSTRI 05/22/24 22:00 05/27/24 09:10 2 SPR Trazodone HCl 50 mg HSPRN PO 05/23/24 22:00 05/26/24 21:40 50 MG Olanzapine 10 mg HS PO 05/25/24 22:00 05/26/24 21:40 10 MG Laboratory Results Laboratory Tests 05/17/24 13:55 Urinalysis Test 05/13/24 03:50 05/25/24 06:40 Urine Mucus Few (None Seen) Urine Color Light-yellow (Yellow) Urine Clarity Clear (Clear) Urine pH 6.5 (5.0-9.0) Urine Specific [place] 1.015 (1.001-1.035) Urine Protein Negative (Negative) Urine Ketones Negative (Negative) Urine Blood Negative /uL (Negative) Urine Nitrite Negative (Negative) Urine Bilirubin Negative (Negative) Urine Urobilinogen Normal mg/dL (Negative) Urine Leukocyte Esterase Negative /uL (Negative) Urine RBC 1 /hpf (0 - 4) Urine WBC 1 /hpf (0 - 5) Urine Squamous Epithelial Cells Few /hpf (<5) Urine Bacteria None seen /hpf (None Seen) Urine Glucose Normal mg/dL (Normal) Assessment/Plan Assessment/Plan update - still waiting on facility. plan to send patient to acute psychiatric facility. psych agress with 5150 hold. social working on placement and transfer. -- 05/27 - no changes today continues to pend for psych placement #Psychosis with suicidal attempt - tele psych. opn 5150 hold and on Zyprexa 10 qhs #acute encephalopathy resolved #Fall injury #Constipation - on docusate. diet - regular DVT ppx - pt OOB - GI ppx - ana diet cont med-surg admission until placement to psych facility. Plan discussed with: Patient Date of Service: May 27, 2024 Billing Provider: LINDA GAFFNEY MD Common Visit Codes: [id number] INP/OBS CARE(MOD) LINDA GAFFNEY MD May 27, 2024 20:31
[2024-05-27 21:00] VITALS: BP 128/70; PULSE 83; RESP 18; TEMP 98.2; O2SAT 97
[2024-05-28] VITALS (7 sets, daily range): BP systolic 129–134; BP diastolic 69–86; PULSE 75–90; RESP 16–20; TEMP 97.8–98.6; O2SAT 95–100
--- NOTE | 2024-05-28 10:13 | DVHPN2 ---
Progress Note - Dictate Date Seen: May 28, 2024 Medical Necessity Reason Pt with a Central, PICC or Fol: No Subjective Ms. Nunez is a 63 years old right-handed female with a history of dyslipidemia, gout, arthritis, the patient came to the hospital with a chief company of psychosis. I have seen and examined the patient, I have talked to her nurse and sitter, she is alert, oriented x3. She reports doing fine, no new complaints UDS, 05/13/2024: Cannabinoids Urinalysis, 05/13/2024: WBC: 178, urine leukocyte esterase: 3+ CBC, 05/13/2024: Unremarkable BMP, 05/13/2024: Unremarkable TBI/AST/ALT/AP, 05/13/2024: //72 Vitamin B12, 04/2024: Folic acid, 05/12/24: TSH, 05/12/2024: 1.07 CT head, 05/12/2024: No acute intracranial abnormality CT C-spine, 05/14/2024: 1. No evidence of acute cervical spine fracture or traumatic malalignment. 2. Multilevel cervical spondylosis. vital signs Vital Sign Date Time Temp Pulse Resp B/P (MAP) Pulse Ox O2 Delivery O2 Flow Rate FiO2 05/28/24 08:58 97.9 81 18 134/69 (90) 97 97.9 05/27/24 20:00 Room Air* 0 21 Total Intake and Output 05/27/24 05/27/24 05/28/24 15:00 23:00 07:00 Intake Total 1250 ml 1080 ml Output Total 900 ml Balance 350 ml 1080 ml medications Current Medications Medications Dose Ordered Sig/Priyanka Route Start Time Stop Time Status Last Admin Dose Admin Sodium Chloride 10 ml Q8HR IV 05/12/24 22:00 05/26/24 13:10 10 ML Acetaminophen 650 mg Q6HP PRN PO 05/12/24 20:15 05/28/24 09:01 650 MG Ondansetron HCl 4 mg Q4HP PRN IV 05/12/24 20:15 05/20/24 11:42 4 MG Docusate Calcium 240 mg DAILY PO 05/18/24 10:00 05/28/24 08:56 240 MG Haloperidol Lactate 5 mg Q8HP PRN IM 05/19/24 12:15 05/24/24 04:06 5 MG Lorazepam 2 mg ONCE PRN IV 05/19/24 13:00 Pantoprazole Sodium 40 mg DAILY PO 05/21/24 10:00 05/28/24 08:56 40 MG Artificial Tears 1 drop Q2HP PRN EACHEYE 05/22/24 18:30 05/27/24 21:22 1 DROP Oxymetazoline HCl 2 spr BID EACHNOSTRI 05/22/24 22:00 05/28/24 08:56 2 SPR Trazodone HCl 50 mg HSPRN PO 05/23/24 22:00 05/27/24 21:19 50 MG Olanzapine 10 mg HS PO 05/25/24 22:00 05/27/24 21:19 10 MG objective General: the patient is well developed and nourished. No acute distress. MENTAL STATUS: Awake and alert. Oriented to person, place, time and general circumstances. SPEECH, LANGUAGE, HIGHER CORTICAL FUNCTION: no aphasia or dysathria. CRANIAL NERVES: Pupils are equal, round and reactive. EOMs full and conjugate. No nystagmus. Facial sensation intact in all three divisions bilaterally. Mandibular strength intact. Facial muscles symmetrical and strength intact. SENSATION: Sensation to touch and pinprick is normal. MOTOR: Normal tone in the upper and lower extremity. Normal muscle bulk. No fasciculations. No abnormal movements or posturing. Muscle strength of the major groups in the extremities is 5/5. REFLEXES: Deep tendon reflexes normal and symmetrical. No pathological reflexes. CEREBELLAR/COORDINATION: Finger to nose and heel to araujo are normal bilaterally. GAIT/STATION: Within normal limits laboratory and microbiology Laboratory Tests 05/17/24 13:55 Test 05/17/24 13:55 Range/Units Serum Glucose 101 74-106 mg/dL Problem List ? Psychosis with suicidal attempt Fall injury Constipation Assessment/Plan Monitoring Supportive treatment Telemetry Good hydration Zyprexa 10 mg HS Docusate 240 mg daily 5150 hold Okay to walk with our staff on the floor This medical document was created using an electronic medical record system with [employer] system. Although this document has been carefully reviewed, there may still be some phonetic and typographical errors. These areas are purely typographical due to imperfections of the software programs, and do not reflect any compromise in the patient's medical care. Prognosis poor Dietary Evaluation Review Comments: Continue current plan of care Expected Outcomes/Goals: F/U in 5-7 days Plan discussed with: Patient, Other DEANN DICKENS MD May 28, 2024 10:13
--- NOTE | 2024-05-28 16:06 | DVHPN2 ---
Subjective Patient with prior psychiatric history, hostile and abusive for the past couple of days, patient was found crawling on the floor, pulling on tables, unable to be reoriented, per telemetry consult patient on psych hold for attempt to jump off a roof. Patient has multiple self harming behavioral, aggressive towards staff. Multiple attempt to deescalate and reorient patient have been attempted NS unsuccessful. Decision made to chemically. Patient will need to be transferred to a facility with locked. Sickle restrain off today Evaluation, patient mental status unchanged. Patient pending transfer to acute care psychiatric facility. Interval events Seen by Neurology and tele psych, adjusted medication, patient is more calm and does not require chemical or physical restraints Reviewed: H&P Changes from previous H/P or p: No Changes General: Per HPI Objective Vitals Vital Signs Date Time Temp Pulse Resp B/P (MAP) Pulse Ox O2 Delivery O2 Flow Rate FiO2 05/28/24 13:00 97.9 76 18 129/71 (90) 96 97.9 05/28/24 08:00 Room Air* 0 21 Intake/Output Intake and Output 05/28/24 07:00 Intake Total 2330 ml Output Total 900 ml Balance 1430 ml Intake Oral 2330 ml Output Urine Total 900 ml # Voids 5 # Bowel Movements 3 Medications Current Medications Medications Dose Ordered Sig/Priyanka Route Start Time Stop Time Status Last Admin Dose Admin Sodium Chloride 10 ml Q8HR IV 05/12/24 22:00 05/26/24 13:10 10 ML Acetaminophen 650 mg Q6HP PRN PO 05/12/24 20:15 05/28/24 09:01 650 MG Ondansetron HCl 4 mg Q4HP PRN IV 05/12/24 20:15 05/20/24 11:42 4 MG Docusate Calcium 240 mg DAILY PO 05/18/24 10:00 05/28/24 08:56 240 MG Haloperidol Lactate 5 mg Q8HP PRN IM 05/19/24 12:15 05/24/24 04:06 5 MG Lorazepam 2 mg ONCE PRN IV 05/19/24 13:00 Pantoprazole Sodium 40 mg DAILY PO 05/21/24 10:00 05/28/24 08:56 40 MG Artificial Tears 1 drop Q2HP PRN EACHEYE 05/22/24 18:30 05/27/24 21:22 1 DROP Oxymetazoline HCl 2 spr BID EACHNOSTRI 05/22/24 22:00 05/28/24 08:56 2 SPR Trazodone HCl 50 mg HSPRN PO 05/23/24 22:00 05/27/24 21:19 50 MG Olanzapine 10 mg HS PO 05/25/24 22:00 05/27/24 21:19 10 MG Laboratory Results Laboratory Tests 05/17/24 13:55 Urinalysis Test 05/13/24 03:50 05/25/24 06:40 Urine Mucus Few (None Seen) Urine Color Light-yellow (Yellow) Urine Clarity Clear (Clear) Urine pH 6.5 (5.0-9.0) Urine Specific [place] 1.015 (1.001-1.035) Urine Protein Negative (Negative) Urine Ketones Negative (Negative) Urine Blood Negative /uL (Negative) Urine Nitrite Negative (Negative) Urine Bilirubin Negative (Negative) Urine Urobilinogen Normal mg/dL (Negative) Urine Leukocyte Esterase Negative /uL (Negative) Urine RBC 1 /hpf (0 - 4) Urine WBC 1 /hpf (0 - 5) Urine Squamous Epithelial Cells Few /hpf (<5) Urine Bacteria None seen /hpf (None Seen) Urine Glucose Normal mg/dL (Normal) Labs and/or images reviewed: Labs reviewed by me, Image(s) reviewed by me Assessment/Plan Assessment/Plan Acute psychosis Suicidal attempt Acute encephalopathy, resolved Constipation resolved Transferred to acute psychiatric facility Continue with 5150 hold Continue with Zyprexa 10 mg b.i.d. Reconsult tele psych Patient will need to be chemically restrained at this point One on 1 direct observation for self-harm behavior Seen by neurology Can walk with staff Patient will need immediate transferred to acute psych facility once a bed is available for patient's safety Diet on hold DVT prophylaxis ambulatory Plan discussed with: Patient Date of Service: May 28, 2024 Billing Provider: YA DRAKE MD Common Visit Codes: [id number] INP/OBS CARE(HIGH) YA DRAKE MD May 28, 2024 16:06
[2024-05-29] VITALS (7 sets, daily range): BP systolic 117–147; BP diastolic 62–93; PULSE 79–102; RESP 15–18; TEMP 97.8–98.5; O2SAT 95–96
--- NOTE | 2024-05-29 15:13 | DVHPN2 ---
Subjective Patient with prior psychiatric history, hostile and abusive for the past couple of days, patient was found crawling on the floor, pulling on tables, unable to be reoriented, per telemetry consult patient on psych hold for attempt to jump off a roof. Patient has multiple self harming behavioral, aggressive towards staff. Multiple attempt to deescalate and reorient patient have been attempted NS unsuccessful. Decision made to chemically. Patient will need to be transferred to a facility with locked. Sickle restrain off today Evaluation, patient mental status unchanged. Patient pending transfer to acute care psychiatric facility. Interval events Patient is seen by me today during rounds, still pending transfer. Family bedside, sitter at bedside no active complaints Reviewed: H&P Changes from previous H/P or p: No Changes General: Per HPI Objective Vitals Vital Signs Date Time Temp Pulse Resp B/P (MAP) Pulse Ox O2 Delivery O2 Flow Rate FiO2 05/29/24 09:00 97.8 94 17 131/77 (95) 95 97.8 05/29/24 08:00 Room Air* 0 21 Intake/Output Intake and Output 05/29/24 07:00 Intake Total 3600 ml Balance 3600 ml Intake Oral 3600 ml # Voids 10 # Bowel Movements 2 Exam Alert, oriented x3 PERRLA Clear breath sounds bilaterally S1-S2 regular rate and rhythm no murmur Abdomen soft nontender, no hepatomegaly Equal strength bilaterally on upper and lower extremities Ambulating No lower extremity edema Medications Current Medications Medications Dose Ordered Sig/Priyanka Route Start Time Stop Time Status Last Admin Dose Admin Sodium Chloride 10 ml Q8HR IV 05/12/24 22:00 05/29/24 06:15 10 ML Acetaminophen 650 mg Q6HP PRN PO 05/12/24 20:15 05/29/24 07:58 650 MG Ondansetron HCl 4 mg Q4HP PRN IV 05/12/24 20:15 05/20/24 11:42 4 MG Docusate Calcium 240 mg DAILY PO 05/18/24 10:00 05/29/24 07:58 240 MG Haloperidol Lactate 5 mg Q8HP PRN IM 05/19/24 12:15 05/24/24 04:06 5 MG Lorazepam 2 mg ONCE PRN IV 05/19/24 13:00 Pantoprazole Sodium 40 mg DAILY PO 05/21/24 10:00 05/29/24 07:58 40 MG Artificial Tears 1 drop Q2HP PRN EACHEYE 05/22/24 18:30 05/29/24 07:59 1 DROP Oxymetazoline HCl 2 spr BID EACHNOSTRI 05/22/24 22:00 05/29/24 07:58 2 SPR Trazodone HCl 50 mg HSPRN PO 05/23/24 22:00 05/28/24 23:13 50 MG Olanzapine 10 mg HS PO 05/25/24 22:00 05/28/24 23:13 10 MG Laboratory Results Laboratory Tests 05/17/24 13:55 Urinalysis Test 05/13/24 03:50 05/25/24 06:40 Urine Mucus Few (None Seen) Urine Color Light-yellow (Yellow) Urine Clarity Clear (Clear) Urine pH 6.5 (5.0-9.0) Urine Specific [place] 1.015 (1.001-1.035) Urine Protein Negative (Negative) Urine Ketones Negative (Negative) Urine Blood Negative /uL (Negative) Urine Nitrite Negative (Negative) Urine Bilirubin Negative (Negative) Urine Urobilinogen Normal mg/dL (Negative) Urine Leukocyte Esterase Negative /uL (Negative) Urine RBC 1 /hpf (0 - 4) Urine WBC 1 /hpf (0 - 5) Urine Squamous Epithelial Cells Few /hpf (<5) Urine Bacteria None seen /hpf (None Seen) Urine Glucose Normal mg/dL (Normal) Assessment/Plan Assessment/Plan Acute psychosis Suicidal attempt Acute encephalopathy, resolved Constipation resolved Transferred to acute psychiatric facility Continue with 5150 hold Continue with Zyprexa 10 mg b.i.d. Reconsult tele psych Patient will need to be chemically restrained at this point One on 1 direct observation for self-harm behavior Seen by neurology Can walk with staff Patient will need immediate transferred to acute psych facility once a bed is available for patient's safety Diet regular DVT prophylaxis ambulatory Plan discussed with: Patient My Orders Orders - YA DRAKE MD Procedure Category Date Status Time Complete Blood Count LAB 05/30/24 Verified 04:00 Basic Metabolic Panel LAB 05/30/24 Verified 04:00 Date of Service: May 29, 2024 Billing Provider: YA DRAKE MD Common Visit Codes: [id number] INP/OBS CARE(MOD) YA DRAKE MD May 29, 2024 15:13
[2024-05-30 05:00] VITALS: BP 113/58; PULSE 72; RESP 20; O2SAT 97
[2024-05-30 09:00] VITALS: BP 131/69; PULSE 84; RESP 19; TEMP 98.1; O2SAT 98
[2024-05-30 10:09] LABS: Basophils # (auto) 0.1 10 ^3/uL (0-0.2); Hemoglobin 13.5 g/dL (12.2-16.2); Monocytes # (auto) 0.4 10 ^3/uL (0-1.3)
[2024-05-30 10:14] LABS: Eosinophils # (auto) 0.1 10 ^3/uL (0-0.8); Eosinophils % (auto) 2.2 % (0.0-7.0); Hematocrit 38.8 % (36.0-46.0); Lymphocytes # (auto) 2.3 10 ^3/uL (0.4-5.4); Lymphocytes % (auto) 35.5 % (10.0-50.0); Mean Corpuscular Hemoglobin 31.4 pg (28.0-32.0); Mean Corpuscular Hgb Conc. 34.7 g/dL (32.0-36.0); Mean Corpuscular Volume 90.4 fL (80.0-100.0); Monocytes % (auto) 6.5 % (0.0-12.0); Neutrophils # (auto) 3.6 10 ^3/uL (1.6-8.6); Neutrophils % (auto) 54.8 % (37.0-80.0); Platelet Count (auto) 480 10^3/uL (140-450); White Blood Cell 6.5 10^3/uL (4.4-10.8)
[2024-05-30 10:15] LABS: Chloride 108 mmol/L (98-107); Potassium 3.8 mmol/L (3.5-5.1); Sodium 142 mmol/L (136-145)
[2024-05-30 10:16] LABS: Anion Gap 6 (5-15); Calcium 10.9 mg/dL (8.7-10.4); Carbon Dioxide 28 mmol/L (20-31)
[2024-05-30 10:21] LABS: Blood Urea Nitrogen 15 mg/dL (9-23); Glucose 125 mg/dL (74-106)
[2024-05-30 12:30] VITALS: BP 140/67; PULSE 84; RESP 16; TEMP 97.9; O2SAT 99
--- NOTE | 2024-05-30 15:54 | DVHPN2 ---
Subjective Patient with prior psychiatric history, hostile and abusive for the past couple of days, patient was found crawling on the floor, pulling on tables, unable to be reoriented, per telemetry consult patient on psych hold for attempt to jump off a roof. Patient has multiple self harming behavioral, aggressive towards staff. Multiple attempt to deescalate and reorient patient have been attempted NS unsuccessful. Decision made to chemically. Patient will need to be transferred to a facility with locked. Sickle restrain off today Evaluation, patient mental status unchanged. Patient pending transfer to acute care psychiatric facility. Interval events Status quo, still pending transfer. We will reconsult tele psych for clearance of psych hold. Reviewed: H&P Changes from previous H/P or p: No Changes General: Per HPI Objective Vitals Vital Signs Date Time Temp Pulse Resp B/P (MAP) Pulse Ox O2 Delivery O2 Flow Rate FiO2 05/30/24 12:30 97.9 84 16 140/67 (91) 99 97.9 05/30/24 07:30 Room Air* 0 21 Intake/Output Intake and Output 05/30/24 07:00 Intake Total 4064 ml Balance 4064 ml Intake Oral 4064 ml # Voids 16 # Bowel Movements 2 Exam Alert, oriented x3 PERRLA Clear breath sounds bilaterally S1-S2 regular rate and rhythm no murmur Abdomen soft nontender, no hepatomegaly Equal strength bilaterally on upper and lower extremities Ambulating No lower extremity edema Medications Current Medications Medications Dose Ordered Sig/Priyanka Route Start Time Stop Time Status Last Admin Dose Admin Sodium Chloride 10 ml Q8HR IV 05/12/24 22:00 05/30/24 15:32 10 ML Acetaminophen 650 mg Q6HP PRN PO 05/12/24 20:15 05/30/24 11:01 650 MG Ondansetron HCl 4 mg Q4HP PRN IV 05/12/24 20:15 05/20/24 11:42 4 MG Docusate Calcium 240 mg DAILY PO 05/18/24 10:00 05/30/24 10:33 240 MG Haloperidol Lactate 5 mg Q8HP PRN IM 05/19/24 12:15 05/24/24 04:06 5 MG Lorazepam 2 mg ONCE PRN IV 05/19/24 13:00 Pantoprazole Sodium 40 mg DAILY PO 05/21/24 10:00 05/30/24 10:33 40 MG Artificial Tears 1 drop Q2HP PRN EACHEYE 05/22/24 18:30 05/30/24 11:01 1 DROP Oxymetazoline HCl 2 spr BID EACHNOSTRI 05/22/24 22:00 05/30/24 10:33 2 SPR Trazodone HCl 50 mg HSPRN PO 05/23/24 22:00 05/29/24 21:37 50 MG Olanzapine 10 mg HS PO 05/25/24 22:00 05/29/24 21:37 10 MG Laboratory Results Laboratory Tests 05/30/24 09:30 Chemistry Test 05/30/24 09:30 Calcium Level 10.9 mg/dL (8.7-10.4) H Urinalysis Test 05/13/24 03:50 05/25/24 06:40 Urine Mucus Few (None Seen) Urine Color Light-yellow (Yellow) Urine Clarity Clear (Clear) Urine pH 6.5 (5.0-9.0) Urine Specific [place] 1.015 (1.001-1.035) Urine Protein Negative (Negative) Urine Ketones Negative (Negative) Urine Blood Negative /uL (Negative) Urine Nitrite Negative (Negative) Urine Bilirubin Negative (Negative) Urine Urobilinogen Normal mg/dL (Negative) Urine Leukocyte Esterase Negative /uL (Negative) Urine RBC 1 /hpf (0 - 4) Urine WBC 1 /hpf (0 - 5) Urine Squamous Epithelial Cells Few /hpf (<5) Urine Bacteria None seen /hpf (None Seen) Urine Glucose Normal mg/dL (Normal) Labs and/or images reviewed: Labs reviewed by me, Image(s) reviewed by me Assessment/Plan Assessment/Plan Acute psychosis Suicidal attempt Acute encephalopathy, resolved Constipation resolved Transferred to acute psychiatric facility Continue with 5150 hold Continue with Zyprexa 10 mg b.i.d. Reconsult tele psych Patient will need to be chemically restrained at this point One on 1 direct observation for self-harm behavior Seen by neurology Can walk with staff Patient will need immediate transferred to acute psych facility once a bed is available for patient's safety Reconsult tele psych for clearance Diet regular DVT prophylaxis ambulatory Plan discussed with: Patient My Orders Orders - YA DRAKE MD Procedure Category Date Status Time *Tele Psych Consult CONS 05/30/24 Transmitted 08:23 Date of Service: May 30, 2024 Billing Provider: YA DRAKE MD Common Visit Codes: [id number] INP/OBS CARE(MOD) YA DRAKE MD May 30, 2024 15:54
[2024-05-30 16:43] VITALS: BP 148/79; PULSE 100; RESP 19; TEMP 97.7; O2SAT 99
[2024-05-30 20:00] VITALS: PULSE 104; RESP 18
[2024-05-31 01:00] VITALS: BP 122/60; PULSE 108; RESP 18; TEMP 98.4; O2SAT 95
[2024-05-31 05:00] VITALS: BP 124/79; PULSE 95; RESP 17; TEMP 97.7; O2SAT 97
[2024-05-31 08:56] VITALS: BP 115/82; PULSE 90; RESP 18; TEMP 98.3; O2SAT 95
[2024-05-31 13:00] VITALS: BP 157/83; PULSE 83; RESP 18; TEMP 97.8; O2SAT 96
--- NOTE | 2024-05-31 15:24 | DVHINCON2 ---
Date of Service if different f: May 31, 2024 Consultation ([place]) Labs Laboratory Tests Test 05/12/24 16:11 05/13/24 03:50 05/17/24 13:55 05/24/24 23:13 Vitamin B12 Level 436 pg/mL (211-911) Folic Acid (LAB) 30.04 ng/mL (>5.38) Thyroid Stimulating Hormone (TSH) 1.07 uIU/mL (0.55-4.78) Free Thyroxine (T4) Calculated 1.41 ng/dL (0.89-1.76) Urine Mucus Few (None Seen) Urine Opiates Screen Neg (NEGATIVE) Urine Fentanyl Screen Neg (NEGATIVE) Urine Barbiturates Screen Neg (NEGATIVE) Urine Phencyclidine Screen Neg (NEGATIVE) Urine Amphetamines Screen Neg (NEGATIVE) Urine Benzodiazepines Screen Neg (NEGATIVE) Urine Cocaine Screen Neg (NEGATIVE) Urine Cannabinoids Screen Pos (NEGATIVE) Magnesium Level 2.1 mg/dL (1.6-2.6) Total Bilirubin 0.5 mg/dL (0.2-1.0) Aspartate Amino Transf (AST/SGOT) 38 U/L (13-40) Alanine Aminotransferase (ALT/SGPT) 47 U/L (7-40) Alkaline Phosphatase 77 U/L (46-116) Total Protein 7.5 g/dL (5.7-8.2) Albumin 4.7 g/dL (3.2-4.8) Troponin I High Sensitivity < 3 ng/L (</=34) Test 05/25/24 06:40 05/30/24 09:30 Urine Color Light-yellow (Yellow) Urine Clarity Clear (Clear) Urine pH 6.5 (5.0-9.0) Urine Specific [place] 1.015 (1.001-1.035) Urine Protein Negative (Negative) Urine Ketones Negative (Negative) Urine Blood Negative /uL (Negative) Urine Nitrite Negative (Negative) Urine Bilirubin Negative (Negative) Urine Urobilinogen Normal mg/dL (Negative) Urine Leukocyte Esterase Negative /uL (Negative) Urine RBC 1 /hpf (0 - 4) Urine WBC 1 /hpf (0 - 5) Urine Squamous Epithelial Cells Few /hpf (<5) Urine Bacteria None seen /hpf (None Seen) Urine Glucose Normal mg/dL (Normal) White Blood Count 6.5 10^3/uL (4.4-10.8) Red Blood Count 4.30 10^6/uL (4.0-5.20) Hemoglobin 13.5 g/dL (12.2-16.2) Hematocrit 38.8 % (36.0-46.0) Mean Corpuscular Volume 90.4 fL (80.0-100.0) Mean Corpuscular Hemoglobin 31.4 pg (28.0-32.0) Mean Corpuscular Hemoglobin Concent 34.7 g/dL (32.0-36.0) Red Cell Distribution Width 13.0 % (11.8-14.3) Platelet Count 480 10^3/uL (140-450) Mean Platelet Volume 6.5 fL (6.9-10.8) Neutrophils (%) (Auto) 54.8 % (37.0-80.0) Lymphocytes (%) (Auto) 35.5 % (10.0-50.0) Monocytes (%) (Auto) 6.5 % (0.0-12.0) Eosinophils (%) (Auto) 2.2 % (0.0-7.0) Basophils (%) (Auto) 1.0 % (0.0-2.0) Neutrophils # (Auto) 3.6 10 ^3/uL (1.6-8.6) Lymphocytes # (Auto) 2.3 10 ^3/uL (0.4-5.4) Monocytes # (Auto) 0.4 10 ^3/uL (0-1.3) Eosinophils # (Auto) 0.1 10 ^3/uL (0-0.8) Basophils # (Auto) 0.1 10 ^3/uL (0-0.2) Nucleated Red Blood Cells 0.0 % Sodium Level 142 mmol/L (136-145) Potassium Level 3.8 mmol/L (3.5-5.1) Chloride Level 108 mmol/L (98-107) Carbon Dioxide Level 28 mmol/L (20-31) Anion Gap 6 (5-15) Blood Urea Nitrogen 15 mg/dL (9-23) Creatinine 0.75 mg/dL (0.550-1.02) Glomerular Filtration Rate Calc 90 mL/min (>90) BUN/Creatinine Ratio 20.0 (10.0-20.0) Serum Glucose 125 mg/dL (74-106) Calcium Level 10.9 mg/dL (8.7-10.4) Appetite: Fair Appearance: Stated age, Disheveled Psychomotor activity: Restless Behavioral: [place] Eye contact: Limited Speech: WNL Affect: Guarded Mood: Elevated Thought processes: Preservative, Disorganized Thought content: Paranoid Suicidal ideations: Absent Homicidal ideations: Absent Orientation: Person, Place, Time, Confused Memory intact: Recent Intellect: Average Abstractability: Marginal Concentration: Limited Attention: Limited Judgement: Poor Insight: Poor Vitals Vital Signs Date Time Temp Pulse Resp B/P (MAP) Pulse Ox O2 Delivery O2 Flow Rate FiO2 05/31/24 13:00 97.8 83 18 157/83 (107) 96 97.8 05/31/24 07:50 Room Air* 0 21 Current medications Current Medications Medications Dose Ordered Sig/Priyanka Route Start Time Stop Time Status Last Admin Dose Admin Sodium Chloride 10 ml Q8HR IV 05/12/24 22:00 05/31/24 13:56 10 ML Acetaminophen 650 mg Q6HP PRN PO 05/12/24 20:15 05/31/24 09:47 650 MG Ondansetron HCl 4 mg Q4HP PRN IV 05/12/24 20:15 05/20/24 11:42 4 MG Docusate Calcium 240 mg DAILY PO 05/18/24 10:00 05/31/24 09:47 240 MG Haloperidol Lactate 5 mg Q8HP PRN IM 05/19/24 12:15 05/24/24 04:06 5 MG Lorazepam 2 mg ONCE PRN IV 05/19/24 13:00 Pantoprazole Sodium 40 mg DAILY PO 05/21/24 10:00 05/31/24 09:47 40 MG Artificial Tears 1 drop Q2HP PRN EACHEYE 05/22/24 18:30 05/31/24 09:48 1 DROP Oxymetazoline HCl 2 spr BID EACHNOSTRI 05/22/24 22:00 05/31/24 09:48 2 SPR Trazodone HCl 50 mg HSPRN PO 05/23/24 22:00 05/30/24 21:06 50 MG Olanzapine 10 mg HS PO 05/25/24 22:00 05/30/24 21:06 10 MG Treatment plan discussed: With staff Medication adjusted: No Diagnosis: unspecified psychosis Plan : recommend to continue 5150hold for GD and recent attempts to jump from roof. She remains paranoid and has not viable self-care plans. Transfer to inpatient psychiatric facility. Continue zyprexa 10mg po qhs History of Present Illness Reason for Consult : follow up and hold renewal HPI : This is a 63-year-old female with prior hx of psychosis BIB family for evaluation after hx of aggression and trying to jump from roof. Pt had last telepsych evaluation on 05/25/24 with recommendation for 5150hold. Per report from nurse, an inpatient psych facility has accepted her and she is needing hold to be renewed for transfer. Pt is re-evaluated today via telepsychiatry, she remains paranoid with poor insight and judgement. 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 She denies auditory/visual hallucination, but appears distracted, preoccupied. MANAN F[facility]ENTES [facility] May 31, 2024 15:24
[2024-05-31 16:52] VITALS: BP 152/78; PULSE 91; RESP 20; TEMP 97.3; O2SAT 99
--- NOTE | 2024-05-31 19:32 | DVHDS2 ---
Discharge Summary Date of Admission May 12, 2024 at 20:04 Date of Discharge: May 14, 2024 Labs/Diagnostic Data: Laboratory Results Test 05/30/24 09:30 05/25/24 06:40 05/24/24 23:13 05/17/24 13:55 White Blood Count 6.5 10^3/uL (4.4-10.8) Red Blood Count 4.30 10^6/uL (4.0-5.20) Hemoglobin 13.5 g/dL (12.2-16.2) Hematocrit 38.8 % (36.0-46.0) Mean Corpuscular Volume 90.4 fL (80.0-100.0) Mean Corpuscular Hemoglobin 31.4 pg (28.0-32.0) Mean Corpuscular Hemoglobin Concent 34.7 g/dL (32.0-36.0) Red Cell Distribution Width 13.0 % (11.8-14.3) Platelet Count 480 10^3/uL (140-450) Mean Platelet Volume 6.5 fL (6.9-10.8) Neutrophils (%) (Auto) 54.8 % (37.0-80.0) Lymphocytes (%) (Auto) 35.5 % (10.0-50.0) Monocytes (%) (Auto) 6.5 % (0.0-12.0) Eosinophils (%) (Auto) 2.2 % (0.0-7.0) Basophils (%) (Auto) 1.0 % (0.0-2.0) Neutrophils # (Auto) 3.6 10 ^3/uL (1.6-8.6) Lymphocytes # (Auto) 2.3 10 ^3/uL (0.4-5.4) Monocytes # (Auto) 0.4 10 ^3/uL (0-1.3) Eosinophils # (Auto) 0.1 10 ^3/uL (0-0.8) Basophils # (Auto) 0.1 10 ^3/uL (0-0.2) Nucleated Red Blood Cells 0.0 % Sodium Level 142 mmol/L (136-145) Potassium Level 3.8 mmol/L (3.5-5.1) Chloride Level 108 mmol/L (98-107) Carbon Dioxide Level 28 mmol/L (20-31) Anion Gap 6 (5-15) Blood Urea Nitrogen 15 mg/dL (9-23) Creatinine 0.75 mg/dL (0.550-1.02) Glomerular Filtration Rate Calc 90 mL/min (>90) BUN/Creatinine Ratio 20.0 (10.0-20.0) Serum Glucose 125 mg/dL (74-106) Calcium Level 10.9 mg/dL (8.7-10.4) Urine Color Light-yellow (Yellow) Urine Clarity Clear (Clear) Urine pH 6.5 (5.0-9.0) Urine Specific [place] 1.015 (1.001-1.035) Urine Protein Negative (Negative) Urine Ketones Negative (Negative) Urine Blood Negative /uL (Negative) Urine Nitrite Negative (Negative) Urine Bilirubin Negative (Negative) Urine Urobilinogen Normal mg/dL (Negative) Urine Leukocyte Esterase Negative /uL (Negative) Urine RBC 1 /hpf (0 - 4) Urine WBC 1 /hpf (0 - 5) Urine Squamous Epithelial Cells Few /hpf (<5) Urine Bacteria None seen /hpf (None Seen) Urine Glucose Normal mg/dL (Normal) Troponin I High Sensitivity < 3 ng/L (</=34) Magnesium Level 2.1 mg/dL (1.6-2.6) Total Bilirubin 0.5 mg/dL (0.2-1.0) Aspartate Amino Transferase (AST) 38 U/L (13-40) Alanine Aminotransferase (ALT) 47 U/L (7-40) Alkaline Phosphatase 77 U/L (46-116) Total Protein 7.5 g/dL (5.7-8.2) Albumin 4.7 g/dL (3.2-4.8) Test 05/13/24 03:50 05/12/24 16:11 Urine Mucus Few (None Seen) Urine Opiates Screen Neg (NEGATIVE) Urine Fentanyl Screen Neg (NEGATIVE) Urine Barbiturates Screen Neg (NEGATIVE) Urine Phencyclidine Screen Neg (NEGATIVE) Urine Amphetamines Screen Neg (NEGATIVE) Urine Benzodiazepines Screen Neg (NEGATIVE) Urine Cocaine Screen Neg (NEGATIVE) Urine Cannabinoids Screen Pos (NEGATIVE) Vitamin B12 Level 436 pg/mL (211-911) Folic Acid 30.04 ng/mL (>5.38) Thyroid Stimulating Hormone (TSH) 1.07 uIU/mL (0.55-4.78) Free Thyroxine (T4) Calculated 1.41 ng/dL (0.89-1.76) Other Laboratory Tests 05/30/24 09:30 Brief Hx & Hospital Course: 63-year-old female with prior psychiatric comorbidities admitted for agitation. Patient was initially found laying on the floor at her house, initially reported she fall from the roof, however later found that she has suicidal ideation and suicide attempt. Over the course of the hospitalization, pain was on and off agitated, aggressive behavior to staff. Tele psych consulted and recommendations are appreciated, started on antipsychotics. On 1 episode she was requiring chemical and physical restraints. Slight improvement after initiation and uptitration of antipsychotics. Patient was accepted for acute inpatient psych facility, medically cleared for transfer. Patient has of psych hold all the way Condition at Discharge: Stable Final Diagnosis/Problems List Acute psychosis uti resolved Discharge Disposition: Psychiatric Facility Discharge Instruct/Medications Diet: Consistent carbohydrate, Cardiac 2g Na,low cholest Activity: No Restrictions, As Tolerated 39 Discharge Statement: "Patient was advised to return to the ER or call 911 if any headaches, dizziness, shortness of breath, chest pain, abdominal pain, bleeding, fevers, or worsening of medical condition. Patient was counseled about treatment plan, medications, possible side effects, patientverbalized understanding. All questions were answered to the best of my ability. This discharge took greater then 30 minutes in planning, reviewing documentation, counseling the patient, and discussing with other team members." ASSESSMENT ASSESSMENT Assessment Acute psychosis Acute metabolic encephalopathy, resolved UTI resolved Suicidal ideation, suicide attempt Constipation resolved Date of Service: May 31, 2024 Billing Provider: YA DRAKE MD Common Visit Codes: 00797-JFP/OBS DISCH DAY >30min YA DRAKE MD May 31, 2024 19:32
--- NOTE | 2024-06-01 11:30 | ECG ---
[facility] Test Date: 2024-05-18 Test Time: 18:11:50 Pat Name: GIGI BLAIR Department: Room: 0234 A Gender: F [facility] Coordinator: RADHA : 1960 Requested By: YA DRAKE Order Number: [id number] Reading MD: Cecil Pacheco Measurements Intervals Normal Rate: 70 P: 48 VA: 136 QRS: -46 QRSD: 87 T: 46 QT: 400 QTc: 432 Interpretive Statements Sinus rhythm Left anterior fascicular block Electronically Signed On 06-01-2024 15:51:30 PST by Cecil Pacheco Please click the below link to view image of tracing.
== END 2024-05-31 20:15 | DRG 52 ==
LOC: ER 14:43 → EDBD 14:43 → EDUNIT# 14:43 → TELE 20:04 → TELE-WESTW 05-14 23:35 → WEST WING 05-17 18:37 → EAST 05-24 16:48
PROVIDERS: ADMIT Student in an Organized Health Care Education/Training Program; ATTEND Student in an Organized Health Care Education/Training Program
DX: G93.41 Metabolic encephalopathy (principal); R45.851 Suicidal ideations; F23 Brief psychotic disorder; N39.0 Urinary tract infection, site not specified; K59.00 Constipation, unspecified; M10.9 Gout, unspecified; Z78.1 Physical restraint status; Z79.899 Other long term (current) drug therapy; Z88.0 Allergy status to penicillin; W06.XXXA Fall from bed, initial encounter; E78.5 Hyperlipidemia, unspecified; Y93.89 Activity, other specified; Y99.8 Other external cause status; Y92.003 Bedroom of unspecified non-institutional (private) residence as the place of occurrence of the external cause; M19.90 Unspecified osteoarthritis, unspecified site
CPT/HCPCS: 36415; 70450; 71045; 72125; 80048; 80053; 80307; 81001; 82607; 82746; 83735; 84439; 84443; 84484; 85025; 93005; 99291; G0378; J2405; J3490; Q0162